=== PATIENT | male | born 1985 | race Caucasian/White ===

== ENCOUNTER → 2019-06-28 08:23 | Outpatient (CLI) | payer OTHER, SELFPAY ==
--- NOTE | 2019-06-28 08:40 | RAD_ITS ---
STUDY: X-RAY CHEST REASON FOR EXAM: Male, 33 years old. One-month history of cough. TECHNIQUE: PA and lateral views of the chest. COMPARISON: Comparison is made with prior study dated July 16, 2015. FINDINGS: Mild increased markings at the left lung base suggestive of left basilar atelectasis and/or early follow-up is recommended. There is no demonstrated pleural abnormality. Normal size heart. Normal mediastinum and sharlene. Normal visualized pulmonary arteries. Normal visualized aortic arch and descending thoracic aorta. Normal visualized thoracic spine. Normal visualized ribs, clavicles, and shoulders. There is no demonstrated abnormality of the visualized soft tissue structures of the upper abdomen. RAD/Chest PA and Lateral IMPRESSION: Mild degree of increased markings at the left lung base as described. Radiographic follow-up is recommended. Electronically Signed: Rafa Farley, at 9:00 EST , Service support ,
== END ==
PROVIDERS: Family Provider Family Medicine; PCP Family Medicine; Referring Provider Nurse Practitioner Family; Visit Provider Nurse Practitioner Family
DX: R05 Cough (principal)
CPT/HCPCS: 71046

== ENCOUNTER → 2020-03-04 | Outpatient (CLI) | payer OTHER, SELFPAY ==
[2015-07-15 11:39] VITALS: BMI 40.1
--- NOTE | 2020-03-04 14:42 | RAD_ITS ---
STUDY: X-RAY - ABDOMEN/PELVIS REASON FOR EXAM: Male, 34 years old. Patient complains of persistent RLQ pain TECHNIQUE: AP supine and upright views of the abdomen and pelvis. COMPARISON: None. FINDINGS: Normal visualized lung bases. There is a moderate amount of colonic fecal material. There is no demonstrated free abdominal air. The visualized liver, spleen and kidneys are grossly normal in size and morphology. Normal soft tissue structures. Normal visualized osseous structures. RAD/Abd Inc Decub and/or Erect IMPRESSION: A moderate amount of fecal material is seen in the colon. Electronically Signed: Rafa Farley, at 15:06 EDT , Service support ,
== END | disposition home or self-care (01) ==
LOC: MTRAD 14:39
PROVIDERS: PCP Family Medicine; Referring Provider Nurse Practitioner Adult Health; Visit Provider Nurse Practitioner Adult Health
DX: R10.9 Unspecified abdominal pain (principal)
CPT/HCPCS: 74019

== ENCOUNTER → 2020-09-05 | Outpatient (CLI) | payer OTHER, SELFPAY ==
[2015-07-15 11:39] VITALS: BMI 40.1
== END | disposition home or self-care (01) ==
LOC: LABSPEC 15:28
PROVIDERS: PCP Family Medicine; Referring Provider Family Medicine; Visit Provider Family Medicine
DX: R50.9 Fever, unspecified (principal)
CPT/HCPCS: 87635; U0005; U0003

== ENCOUNTER 2021-02-19 11:54 | Observation (INO) | payer OTHER, SELFPAY ==
[2021-02-19] VITALS (14 sets, daily range): BP systolic 140–155; BP diastolic 95–104; PULSE 101–121; RESP 16–25; TEMP 36.4–37; O2SAT 88–96; BMI 39.4; BMI 39.6
--- NOTE | 2021-02-19 12:12 | EKG12_ITS ---
Test Reason : SOB Blood Pressure : / mmHG Vent. Rate : 111 BPM Atrial Rate : 111 BPM P-R Int : 162 ms QRS Dur : 092 ms QT Int : 350 ms P-R-T Axes : 034 063 033 degrees QTc Int : 476 ms Sinus tachycardia Otherwise normal ECG Confirmed by NAREN SON, MIKAELA ([id number]), movie editor CATHERINE MORRISSEY ([id number]) on 02/26/2021 1:04:42 PM Referred By: AYLIN Confirmed By:MIKAELA SNEED MD
--- NOTE | 2021-02-19 12:16 | EDS_ITS ---
HPI History of Present Illness Chief Complaint: Shortness of Breath Informant: patient Onset/Context/Timing Onset: Days (3 to 4 days) Context: Gradual Onset Current Severity: Moderate Maximum Severity: Moderate Narrative Narrative: Patient presents with shortness of breath, cough, congestion, and chest tightness for the past 3 to 4 days. Patient has had subjective fever at home. He is coughing up rare sputum. He was seen at [facility] yesterday where he was given albuterol nebulizer solution he does not have a machine. He was given prednisone. He was followed up in his PCPs office this morning and they sent him in to rule out blood clot. [facility] Medical History GERD (gastroesophageal reflux disease) Allergy/AdvReac Type Severity Reaction Status Date / Time No Known Allergies Allergy Verified 02/19/21 11:54 Social History Smoking Status: Current some day smoker tobacco type: cigarettes and cigars ROS ROS ED Constitutional Constitutional ED: Reports fever(s) and subjective; Denies chills Eyes Eyes: Denies change in vision ENT ENT ED: Denies sore throat Cardiovascular Cardiovascular: Reports chest pain Respiratory/Chest Respiratory/Chest: Reports cough and dyspnea Gastrointestinal Gastrointestinal: Denies abdominal pain, diarrhea, nausea or vomiting Genitourinary Genitourinary ED: Denies dysuria Musculoskeletal Musculoskeletal: Denies back pain Integumentary Denies rash Neurologic Neurologic: Denies headache(s) or weakness Psychiatric Psychiatric: Denies anxiety or depression Endocrine Endocrinology: Denies polydipsia or polyuria Allergic/Immunologic Allergic/Immunologic ED: Denies urticaria EXAM Physical Exam Const Vital Signs: 02/19/21 11:55 02/19/21 12:25 02/19/21 12:52 Temperature 97.6 F L Temperature Source Temporal Pulse Rate 121 H 111 H Respiratory Rate 20 H 24 H Respiratory Effort Respiratory Depth Respiratory Pattern Blood Pressure 140/99 H Blood Pressure Mean 112 Pulse Ox 96 91 92 Oxygen Delivery Method Room Air Room Air Nasal Cannula Oxygen Flow Rate (L/min) 2 02/19/21 12:53 02/19/21 13:35 Temperature Temperature Source Pulse Rate 108 H Respiratory Rate 16 Respiratory Effort Normal Non-Labored Respiratory Depth Normal Respiratory Pattern Normal Blood Pressure 145/97 H Blood Pressure Mean 113 Pulse Ox 92 Oxygen Delivery Method Room Air Nasal Cannula Oxygen Flow Rate (L/min) 2 Positive well nourished and well developed General Appearance ED: well developed HEENT Reports normocephalic and head/scalp atraumatic Eyes PERRL and EOMs intact bilaterally Neck supple Chest Wall inspection of chest normal and palpation of chest normal Resp normal respiratory effort and clear to auscultation bilaterally Cardio regular rhythm Rate: tachycardic GI normal to inspection, nondistended, normoactive bowel sounds Palpation: soft Extremity Extremity Narrative: Ecchymosis to the medial right lower leg. Minimal edema. Neuro oriented x3 and no sensory deficits noted Sensorium / Orientation: alert Motor Exam: strength 5/5 throughout Psych mental status grossly normal MDM MDM MDM Narrative Medical decision making narrative: EKG and labs are obtained. Patient is sent for a CTA of his chest. He is given a DuoNeb treatment. Lab Data Attestation: I reviewed the patient's lab results. Labs: Laboratory Results - last 24 hr 02/19/21 02/19/21 12:08 12:08 WBC 6.3 RBC 4.77 Hgb 16.6 H Hct 46.7 MCV 97.9 H MCH 34.8 H MCHC 35.5 RDW Std Deviation 45.5 H RDW Coeff of Linsey 12.8 Plt Count 260 MPV 9.6 Immature Gran % (Auto) 2.200 H Neut % (Auto) 75.6 H Lymph % (Auto) 12.6 L Park % (Auto) 6.8 Eos % (Auto) 1.9 Baso % (Auto) 0.9 Absolute Neuts (auto) 4.8 Absolute Lymphs (auto) 0.80 L Nucleated RBC % 0 Sodium 139 Potassium 4.1 Chloride 107 Carbon Dioxide 25.0 Anion Gap 7 BUN 12 Creatinine 1.20 Estim Creat Clear Calc 101.71 Est GFR (MDRD) Af Amer 88 Est GFR (MDRD) Non-Af 73 BUN/Creatinine Ratio 10.0 Glucose 117 H Calcium 9.1 Troponin I High Sens 59.4 Radiography Diagnostic Testing: Radiology Impression Chest CTA 02/19/21 13:10 IMPRESSION: Normal CTA chest examination, without a demonstrated pulmonary embolism or arterial dissection. Electronically Signed: Rafa Farley MD at 13:49 EDT , Service support , EKG Initial EKG: Attestation: I personally reviewed and interpreted this EKG as follows: Interpretation: Sinus Tachycardia (Sinus tach at 111. No acute ischemia.) Treatment and Re-Evaluation Comments:: On repeat evaluation patient is on 2 L nasal cannula. His O2 sat dropped to 88%. He states his lungs further started to tighten up again and he will be given another albuterol treatment. Blood work is significant only for a troponin of 59.4. CTA of the chest reveals no evidence of PE or dissection. No infiltrate noted. Patient remains borderline tachycardic with significant symptoms. I do question whether he may have a cardiomyopathy or other cause of his symptoms. I will speak with hospitalist regarding observation for cycling of enzymes and possible echocardiogram. Discharge Plan Triage Chief Complaint: Shortness of Breath ED Provider: Rachel Stacy Dx/Rx/DC Orders Clinical Impression: Chest pain Primary Care Provider: Radha Lee Referrals: Radha Lee MD [Primary Care Provider] - Disposition Disposition: Acute Care Hospital [facility]
[2021-02-19] MEDS: Ipratropium/Albuterol Sulfate 3 ML AMPUL.NEB INHALATION (12:22)
[2021-02-19 12:29] LABS: Absolute Neutrophil Count 4.8 X10^3/uL (2.0-7.7); Basophil# 0.06 X10^3/uL; Basophil% 0.9 % (0-1); Eosinophil# 0.12 X10^3/uL; Eosinophils% 1.9 % (0-5); Hematocrit 46.7 % (40-54); Hemoglobin 16.6 g/dL (13.0-16.5); Lymphocyte % 12.6 % (19-41); Mean Corp Hgb Conc 35.5 g/dL (32-36); Mean Corpuscular Hgb 34.8 pg (27.0-32.0); Mean Corpuscular Volume 97.9 fL (80-94); Mean Platelet Vol. 9.6 fl (6.2-12.0); Monocyte# 0.43 X10^3/uL; Monocyte% 6.8 % (0-10); NRBC Flagged by Analyzer 0 % (0-5); Neutrophil # 4.79 X10^3/uL (2.7-7.7); Neutrophil % 75.6 % (47-70); Platelet Count 260 K/mm3 (150-450); RBC Distribution Width CV 12.8 % (11.6-14.6); RBC Distribution Width SD 45.5 fl (35.1-43.9); Red Blood Count 4.77 M/mm3 (4.6-6.2); White Blood Count 6.3 K/mm3 (4.4-11.0)
[2021-02-19 12:46] LABS: Anion Gap 7 (5-15); BUN 12 mg/dL (7-18); Calcium,Total 9.1 mg/dL (8.5-10.1); Chloride 107 mmol/L (98-107); EST Glomerular Filtration Rate 73 mL/min (>60); Est Glom Filt Rate - Afr Amer 88 mL/min (>60); Estimated Creatinine Clearance 101.71 ml/min; Glucose 117 mg/dL (74-106); Potassium 4.1 mmol/L (3.5-5.1); Sodium Level 139 mmol/L (136-145); Troponin-I HS 59.4 pg/mL (3.0-78.5)
--- NOTE | 2021-02-19 13:10 | CT_ITS ---
STUDY: CTA CHEST REASON FOR EXAM: Male, 35 years old. Dyspnea, CP RADIATION DOSAGE (If Supplied By Facility): CTDIvol = ( 13.85 ) mGy, DLP = ( 536.19 ) mGycm TECHNIQUE: The examination was performed with the intravenous administration of IV 100mL Isovue-370. Post-processing of the angiographic images was performed, with multiplanar reformation and 3D reconstruction. Individualized dose optimization techniques were used for this CT. COMPARISON: None. FINDINGS: Normal enhancement of the main pulmonary artery and right and left pulmonary arteries. Normal enhancement of the bilateral peripheral pulmonary arteries. There is no demonstrated pulmonary embolism. Normal thoracic aorta and visualized great vessels. There is no demonstrated aortic dissection. Normal heart and pericardium. Normal mediastinum. Normal hilar regions. Normal visualized trachea and bronchi. The lungs are well expanded. Normal pulmonary parenchyma. Normal pleura. Normal chest wall structures. Normal osseous structures. Diffuse fatty infiltration of the liver. CT/CTA Chest W/WO Contrast IMPRESSION: Normal CTA chest examination, without a demonstrated pulmonary embolism or arterial dissection. Electronically Signed: Rafa Farley MD at 13:49 EDT , Service support ,
[2021-02-19] MEDS: Morphine 4 MG/ML Syringe IV (14:18)
[2021-02-19] MEDS: Albuterol 2.5 MG/3 ML VIAL.NEB. INHALATION (14:45)
[2021-02-19] MEDS: 0.9% Normal Saline 1,000 ML 999 ML IV (14:45)
--- NOTE | 2021-02-19 16:03 | NURSING ---
PCU CP, SOB JOSE
[2021-02-19 16:31] LABS: Troponin-I HS 47.1 pg/mL (3.0-78.5)
--- NOTE | 2021-02-19 17:16 | HP.PCM.HOS_ITS ---
Documented by User: Demetrio MARCOS 02/19/21 17:44 HPI - General General Date of Admission: 02/19/21 HPI Narrative SABRINA BRUMFIELD is a 35 y/o M who presents to the ED at [facility] on 02/19/2021 with a chief complaint of chest pain and shortness of breath x4 days. Patient reports that for the past 4 days he has been experiencing a progressively worsening chest pain that is midepigastric, radiates to the upper extremities and is nonexertional in nature. Patient has been previously evaluated at the [place] emergency department where he was given prednisone and an albuterol nebulizer treatment, to which he does not have the machine to use. Patient reports no relief from these therapies. Patient followed up at his primary care office with the same symptoms and was told to report to the emergency department at [facility] [place]. Patient endorses multiple life stressors, to which he did not want to go into great detail. Dr. Miranda evaluated the patient before this provider and had a long conversation about patient's ongoing life stressors, where the patient was observed crying. patient denies cough, sputum production, hemoptysis, lower extremity pain/swelling, fever, chills, N/V/D. Patient denies any diagnosed past medical history, although reports that he knows he has high blood pressure. Patient's vital signs were tachycardic in the ED between 100-110. Patient has also been hypertensive at a sustained rate greater than 140/90. Other vital signs stable, patient afebrile and satting at 95% on 2 L via nasal cannula. CBC is unremarkable. BMP is unremarkable. High-sensitivity troponins are not elevated. CT-A was normal and did not demonstrate any pulmonary embolism or arterial dissection. Rapid Covid is negative. EKG demonstrated sinus tachycardia at a ventricular rate of 111, no evidence of acute ischemia. Patient was given morphine, albuterol and fluids while in the emergency department. PFSH Medical History Alcohol abuse Anxiety BiPAP (biphasic positive airway pressure) dependence Depression GERD (gastroesophageal reflux disease) Hypertension Kidney stones Migraines Sleep apnea Smoker Home Medications NK 02/19/21 [History Last Taken Unknown] Allergy/AdvReac Type Severity Reaction Status Date / Time No Known Allergies Allergy Verified 02/19/21 11:54 Family History (Updated 02/19/21 @ 17:27 by Demetrio MARCOS) Father Cancer from colorectal cancer x6 years ago. Mother Hypertension Surgical History (Updated 02/19/21 @ 17:28 by Demetrio MARCOS) S/P hernia surgery S/P tonsillectomy Social History (Updated 02/19/21 @ 17:30 by Demetrio MARCOS) household members: significant other, family and children housing: house number of children: 3 Smoking Status: Current some day smoker tobacco type: cigarettes and cigars per week: 1 alcohol intake: current alcohol intake frequency: a few times a week Alcohol type: beer details: 5-9 craft beers socially. ROS Constitutional Constitutional: Reports fatigue and weakness; Denies anorexia, change in weight, chills, fever(s), malaise, night sweats or other Eyes Eyes: Denies blurry vision, change in eye color, change in vision, discharge from eye(s), double vision, erythema, eye pain, loss of vision or other ENT HEENT: Reports headache(s); Denies abnormal hearing, dysphagia, ear pain, epistaxis, hearing loss, nasal congestion, nasal discharge, post nasal drip, sinus pressure, sore throat or other Cardiovascular Cardiovascular: Reports chest pain, dyspnea on exertion and rapid heart rate; Denies claudication, edema, lightheadedness, orthopnea, palpitations, paroxysmal nocturnal dyspnea, syncope or other Respiratory/Chest Respiratory/Chest: Reports shortness of breath at rest; Denies cough, dyspnea, excessive phlegm production, hemoptysis, productive cough, shortness of breath with exertion, wheezing or other Gastrointestinal Gastrointestinal: Denies abdominal pain, coffee ground emesis, constipation, diarrhea, dyspepsia, hematemesis, hematochezia, loose stools, melena, nausea, vomiting or other Genitourinary Genitourinary: Denies burning urination, difficulty urinating, dysuria, hematuria, nocturia, urinary frequency, urinary hesitancy, urinary incontinence, urinary urgency or other Musculoskeletal Musculoskeletal: Denies arthralgias, back pain, joint pain, joint stiffness, joint swelling, myalgias, neck pain or other Neurologic Neurologic: Reports abnormal speech and headache(s); Denies abnormal gait, confusion, disequilibrium, dizziness, focal weakness, numbness, paresthesias, seizure-like activity, seizures, syncope, tingling, tremor(s) or other Psychiatric Psychiatric: Reports anxiety and other Details: Patient reports several life stressors, which he did not elaborate in great detail. Endocrine Endocrinology: Denies change in body appearance, cold intolerance, excessive sweating, heat intolerance, polydipsia, polyuria or other Hematologic/Lymphatic Hematologic/Lymphatic: Denies anemia, easy bleeding, easy bruising, lymph adenopathy or other Allergic/Immunologic Allergic/Immunologic: Denies rhinitis, hives, eczemia, asthma or other Vital Signs Vital Signs Vital Signs: 02/19/21 11:55 02/19/21 12:25 02/19/21 12:30 Temperature 97.6 F L Temperature Source Temporal Pulse Rate 121 H 111 H Respiratory Rate 20 H 24 H Respiratory Effort Respiratory Depth Respiratory Pattern Blood Pressure 140/99 H Blood Pressure Mean 112 Blood Pressure Source Blood Pressure Position Blood Pressure Location Pulse Ox 96 91 88 Oxygen Delivery Method Room Air Room Air Room Air Oxygen Flow Rate (L/min) 02/19/21 12:52 02/19/21 12:53 02/19/21 13:35 Temperature Temperature Source Pulse Rate 108 H Respiratory Rate 16 Respiratory Effort Normal Non-Labored Respiratory Depth Normal Respiratory Pattern Normal Blood Pressure 145/97 H Blood Pressure Mean 113 Blood Pressure Source Blood Pressure Position Blood Pressure Location Pulse Ox 92 92 Oxygen Delivery Method Nasal Cannula Room Air Nasal Cannula Oxygen Flow Rate (L/min) 2 2 02/19/21 14:45 02/19/21 16:00 02/19/21 16:17 Temperature 98.4 F Temperature Source Oral Pulse Rate 107 H 106 H Respiratory Rate 25 H 18 Respiratory Effort Respiratory Depth Respiratory Pattern Blood Pressure 155/95 H Blood Pressure Mean 115 Blood Pressure Source Blood Pressure Position Blood Pressure Location Pulse Ox 96 95 95 Oxygen Delivery Method Nasal Cannula Nasal Cannula Nasal Cannula Oxygen Flow Rate (L/min) 2 2 02/19/21 17:06 Temperature 98.6 F Temperature Source Temporal Pulse Rate 102 H Respiratory Rate 16 Respiratory Effort Respiratory Depth Respiratory Pattern Blood Pressure 149/103 H Blood Pressure Mean 118 Blood Pressure Source Monitor Blood Pressure Position Semi-Fowlers Blood Pressure Location Right Arm Pulse Ox 95 Oxygen Delivery Method Nasal Cannula Oxygen Flow Rate (L/min) 2 Weight Weight: 317 lb 7.45 oz Body Mass Index (BMI) 39.6 Physical Exam Const alert, oriented x3 and no apparent distress General Appearance: cooperative HEENT normocephalic, head/scalp atraumatic and hearing grossly normal bilaterally Eyes EOMs intact bilaterally and conjunctivae normal Neck no lymphadenopathy, supple and no JVD Resp normal respiratory effort, normal air movement, no retractions and no use of accessory muscles Cardio regular rhythm, no murmurs and no JVD Rate: tachycardic GI normal to inspection, nondistended, normoactive bowel sounds, soft to palpation, non-tender and non-distended Extremity normal to inspection, full ROM and no clubbing, cyanosis or edema Peripheral Pulses: Yes pulses 2+ throughout Skin no rashes or lesions noted, no wounds and no jaundice Neuro CN's II-XII intact bilaterally Psych Mood & Affect: anxious Results Lab / Micro Data Result Diagrams: 02/19/21 12:08 02/19/21 12:08 Labs: Laboratory Results - last 24 hr 02/19/21 02/19/21 02/19/21 12:08 12:08 15:55 WBC 6.3 RBC 4.77 Hgb 16.6 H Hct 46.7 MCV 97.9 H MCH 34.8 H MCHC 35.5 RDW Std Deviation 45.5 H RDW Coeff of Linsey 12.8 Plt Count 260 MPV 9.6 Immature Gran % (Auto) 2.200 H Neut % (Auto) 75.6 H Lymph % (Auto) 12.6 L Weber % (Auto) 6.8 Eos % (Auto) 1.9 Baso % (Auto) 0.9 Absolute Neuts (auto) 4.8 Absolute Lymphs (auto) 0.80 L Nucleated RBC % 0 Sodium 139 Potassium 4.1 Chloride 107 Carbon Dioxide 25.0 Anion Gap 7 BUN 12 Creatinine 1.20 Estim Creat Clear Calc 101.71 Est GFR (MDRD) Af Amer 88 Est GFR (MDRD) Non-Af 73 BUN/Creatinine Ratio 10.0 Glucose 117 H Calcium 9.1 Troponin I High Sens 59.4 47.1 Micro: Microbiology 02/19/21 12:05 SARS-CoV-2 Antigen (Rapid) - Final Mucosa - Nose Radiology Impression Chest CTA 02/19/21 13:10 IMPRESSION: Normal CTA chest examination, without a demonstrated pulmonary embolism or arterial dissection. Electronically Signed: Rafa Farley MD at 13:49 EDT , Service support , Assessment & Plan Assessment/Plan (1) Smoker: (2) Hypertension: (3) Depression: (4) Anxiety: (5) Hiatal hernia: (6) Chest pain: PLAN: Patient is a 35-year-old male presents to the ED at [facility] [place] on 02/19/2021 with a chief complaint of chest pain and shortn ess of breath x4 days. Patient will be admitted for chest pain/ACS rule out. 1) chest pain and dyspnea History of chest pain shortness of breath as above. History and presentation appear psychological in nature, possibly related to anxiety and unidentified life stressors. EKG in the ED demonstrated sinus tachycardia at a ventricular rate of 110. Patient also has a mild hypertension with a sustained rate of greater than 140/90. Other vital signs stable patient is afebrile. High-sensitivity troponins not elevated. CT?A obtained to assess for PE, no evidence of pulmonary embolism or arterial dissection, diffuse fatty liver infiltration, otherwise other systems normal. Heart score is 1. Plan; admit to PCU for cardiac telemetry monitoring, continue to cycle troponins, lipid profile ordered, O2 per protocol, TSH in a.m. 2) HTN Sustained hypertension at a sustained rate greater than 140/90. Patient denies any diagnosed hypertension, but reports he knows he has high blood pressure. Not on any hypertensive medications at home. Plan; as above. 3) depression/anxiety Patient identified several life stressors, to which he did not go into detail. Prior to my examination, patient was talking to Dr. Miranda and was observed crying. Plan; as above, patient may benefit from psychological counseling as an outpatient. 4) tobacco use Patient endorses smoking 4 to 5 cigars/month. Cessation advised. DVT prophylaxis -low risk, not indicated CODE STATUS: Full code Patient seen by Demetrio Fortune PA-C, under the supervision of Dr. Kwon. Documented by User: Dr. Paco Miranda MD 02/19/21 18:06 HPI - General General Date of Admission: 02/19/21 [facility] Medical History Alcohol abuse Anxiety BiPAP (biphasic positive airway pressure) dependence Depression GERD (gastroesophageal reflux disease) Hypertension Kidney stones Migraines Sleep apnea Smoker Home Medications NK 02/19/21 [History Last Taken Unknown] Allergy/AdvReac Type Severity Reaction Status Date / Time No Known Allergies Allergy Verified 02/19/21 11:54 Family History (Updated 02/19/21 @ 17:27 by Demetrio MARCOS) Father Cancer from colorectal cancer x6 years ago. Mother Hypertension Surgical History (Updated 02/19/21 @ 17:28 by Demetrio MARCOS) S/P hernia surgery S/P tonsillectomy Social History (Updated 02/19/21 @ 17:30 by Demetrio MARCOS) household members: significant other, family and children housing: house number of children: 3 Smoking Status: Current some day smoker tobacco type: cigarettes and cigars per week: 1 alcohol intake: current alcohol intake frequency: a few times a week Alcohol type: beer details: 5-9 craft beers socially. Results Lab / Micro Data Result Diagrams: 02/19/21 12:08 02/19/21 12:08 Charges/Coding Addendum Addendum: Dr. Miranda: I personally reviewed the chart and examined the patient, and agree with the above findings. 35-year-old male presents this hospital with continued chest pain and pressure. He states that he went to an outside hospital yesterday and and was told that everything was normal and they gave him albuterol for n ebulizer machine that he does not have and told him to follow-up with his PCP. Today his PCP sent him into the ER to be evaluated for potential blood clots. CTA of the chest was completely negative for pulmonary process and a PE, and a BMP at the outside hospital was normal. He did get hypoxic after breathing treatment which necessitated 2 L of oxygen because he was down to 88%, will attempt to wean. He said this started after he was clearing out trees and some debris but on further evaluation he has been having issues with anxiety for quite a while now related to life events between himself and his and work. After our discussion he says that he feels a lot better initial troponin was 59.4 repeat now is 47.1. We will start him on Zoloft and if he is still having chest pain in the morning may be beneficial to proceed with a stress test for completeness sake, lipid panel is pending. Visit Charges OBSV E&M: [id number] Initial observation care L2
[2021-02-19] MEDS: 0.9% Normal Saline 1,000 ML 100 ML IV (17:41)
[2021-02-19] MEDS: Morphine 2 MG/ML Syringe IV (18:52)
--- NOTE | 2021-02-19 20:18 | EKG12_ITS ---
Test Reason : CP ADMIT Blood Pressure : / mmHG Vent. Rate : 105 BPM Atrial Rate : 105 BPM P-R Int : 160 ms QRS Dur : 098 ms QT Int : 372 ms P-R-T Axes : 057 053 020 degrees QTc Int : 491 ms Sinus tachycardia Otherwise normal ECG When compared with ECG of 19-FEB-2021 12:20, MANUAL COMPARISON REQUIRED, DATA IS UNCONFIRMED Confirmed by THELMA SON, DANE ([id number]), newspaper managing editor LEONARD VITALE ([id number]) on 02/20/2021 12:57:12 PM Referred By: DR GARCIA Confirmed By:SHAINA RENEE MD
[2021-02-19] MEDS: LORazepam 0.5 MG Tablet PO (20:31)
[2021-02-19] MEDS: Temazepam 15 MG Capsule 30 MG PO (20:31)
[2021-02-19 21:27] LABS: Troponin-I HS 51.2 pg/mL (3.0-78.5)
[2021-02-20] VITALS (8 sets, daily range): BP systolic 147–171; BP diastolic 81–105; PULSE 90–123; RESP 18; TEMP 36.7; O2SAT 95–98
[2021-02-20] MEDS: 0.9% Normal Saline 1,000 ML 100 ML IV (03:33)
[2021-02-20] MEDS: LORazepam 0.5 MG Tablet PO (04:29)
--- NOTE | 2021-02-20 05:55 | EKG12_ITS ---
Test Reason : AM EKG Blood Pressure : / mmHG Vent. Rate : 098 BPM Atrial Rate : 098 BPM P-R Int : 166 ms QRS Dur : 098 ms QT Int : 382 ms P-R-T Axes : 058 050 032 degrees QTc Int : 487 ms Normal sinus rhythm Prolonged QT Abnormal ECG When compared with ECG of 19-FEB-2021 19:44, MANUAL COMPARISON REQUIRED, DATA IS UNCONFIRMED Confirmed by THELMA SON, DANE ([id number]), digital editor LEONARD VITALE ([id number]) on 02/20/2021 12:57:44 PM Referred By: DR GARCIA Confirmed By:SHAINA RENEE MD
[2021-02-20 06:33] LABS: Absolute Lymphocyte Count 1.05 X10^3/uL (0.83-4.51); Absolute Neutrophil Count 4.5 X10^3/uL (2.0-7.7); Basophil# 0.05 X10^3/uL; Basophil% 0.8 % (0-1); Eosinophil# 0.26 X10^3/uL; Hematocrit 44.3 % (40-54); Hemoglobin 15.2 g/dL (13.0-16.5); Lymphocyte # 1.05 X10^3/ul (0.83-4.51); Lymphocyte % 16.1 % (19-41); Mean Corp Hgb Conc 34.3 g/dL (32-36); Mean Corpuscular Hgb 34.8 pg (27.0-32.0); Mean Corpuscular Volume 101.4 fL (80-94); Mean Platelet Vol. 9.6 fl (6.2-12.0); Monocyte# 0.55 X10^3/uL; Monocyte% 8.4 % (0-10); NRBC Flagged by Analyzer 0 % (0-5); Neutrophil # 4.49 X10^3/uL (2.7-7.7); Neutrophil % 68.9 % (47-70); Platelet Count 229 K/mm3 (150-450); RBC Distribution Width CV 13.2 % (11.6-14.6); RBC Distribution Width SD 48.3 fl (35.1-43.9); Red Blood Count 4.37 M/mm3 (4.6-6.2); White Blood Count 6.5 K/mm3 (4.4-11.0)
[2021-02-20 07:11] LABS: Anion Gap 5 (5-15); BUN 11 mg/dL (7-18); BUN/Creat Ratio 11.7 RATIO (10-20); Calcium,Total 8.4 mg/dL (8.5-10.1); Chloride 109 mmol/L (98-107); Cholesterol 233 mg/dL (200); Creatinine, Serum 0.94 mg/dL (0.70-1.30); EST Glomerular Filtration Rate 96 mL/min (>60); Est Glom Filt Rate - Afr Amer 116 mL/min (>60); Estimated Creatinine Clearance 129.85 ml/min; Glucose 105 mg/dL (74-106); High Density Lipoprotein 43 mg/dL; Potassium 3.9 mmol/L (3.5-5.1); Sodium Level 138 mmol/L (136-145); Thyroid Stim Hormone (TSH) 4.59 uIU/mL (0.358-3.74); Triglycerides 183 mg/dL; Very Low Density Lipoprotein 37 mg/dL (5-40)
--- NOTE | 2021-02-20 10:18 | NURSING ---
Osei HERRING on PCU, notified of patients elevated blood pressure while in Cardiovascular department for stress test.
[2021-02-20] MEDS: Acetaminophen 325 MG Tablet 650 MG PO (10:52)
[2021-02-20] MEDS: Sertraline 50 MG Tablet PO (10:53)
--- NOTE | 2021-02-20 11:47 | PCM.DC ---
Discharge Instructions Diet Discharge Diet: Low fat / Low cholesterol Activity Discharge Activity: Return to Normal Activity Dressing / Incision Call your doctor if you observe: Shortness of breath, Dizziness and Chest pain Follow Up Care Test Results: Test results from this visit will be discussed in further detail at your follow-up appointment, if applicable. Discharge Plan Admission Admit Date/Time: 02/19/21 15:50 Primary Reason for Your Visit: Chest pain, shortness of breath Attending Provider: Mehdi Cobos Primary Care Provider: Radha Lee Instructions Additional Instructions / Restrictions: Recommend follow up with [facility] for anxiety/depression/stressors. You can call for appointment at [phone]. Discharge Orders/Prescriptions Prescriptions: New sertraline 50 mg Tablet 50 mg PO DAILY Qty: 30 RF: 0 lisinopril 10 mg tablet 10 mg PO DAILY Qty: 30 RF: 0 atorvastatin 10 mg tablet 10 mg PO QHS Qty: 30 RF: 0 Referrals / Follow Up: Radha Lee MD [Primary Care Provider] - In 1 Week Disposition Disposition (needs filled in before D/C Order can be placed): Home, Self Care
[2021-02-20] MEDS: Lisinopril 10 MG Tablet PO (12:02)
--- NOTE | 2021-02-20 12:05 | STRESSREP ---
Stress Test Report Date: 02/20/2021 Procedure: Pharmacologic stress nuclear imaging study Indications: Chest pain Consent: Per the patient Procedure: The patient underwent pharmacologic (Regadenoson) evaluation with a peak heart rate of 137 beats per minute (74%predicted maximal heart rate) and a peak blood pressure of 176/118 mmHg. The baseline ECG demonstrated sinus tachycardia. EKG during lexiscan infusion revealed no significant ischemic changes. EKG post infusion revealed no significant ischemic changes [There were no cardiac dysrhythmias pretest, during pharmacologic infusion, or recovery]. Patient had chest discomfort at baseline that did not change with Lexiscan infusion. The examination was discontinued secondary to completion of protocol. Impression: 1. Lexiscan stress test test is negative for Lexiscan infusion induced EKG changes of ischemia. 2. Lexiscan stress test test is negative for Lexiscan infusion induced chest pain. 3. Results of the nuclear portion of the test is as below Myocardial perfusion imaging study: Technique: The patient was injected with [] millicuries of technetium 99m Cardiolite and subsequently rest SPECT Cardiolite nuclear imaging was obtained in the horizontal long, vertical long, and short axis views. The patient underwent pharmacologic [Regadenoson 0.4mg] evaluation. Please see above for details. The patient was injected with [] millicuries of technetium 99m Cardiolite and subsequently stress SPECT Cardiolite nuclear imaging was obtained in the horizontal long, vertical long, and short axis views. A gated Cardiolite study at peak stress was obtained. Interpretation: Rest and stress SPECT Cardiolite nuclear imaging status post realignment, normalization, and attenuation correction demonstrate overall normal myocardial radioisotope uptake. There is no evidence of significant ischemia or infarction. Gated images reveal no significant regional wall motion abnormalities. The reported LVEF is 55%. Impression: 1. There is no evidence of significant ischemia or infarction. 2. Estimated ejection fraction is 55%. This note was generated with [employer] software. It may contain incorrect words, spelling, and punctuation that were not noted in checking the note before signing.
[2021-02-20 12:41] LABS: Free T3 2.7 pg/mL (2.18-3.98); T4 Free Direct 0.87 ng/dL (0.76-1.46)
--- NOTE | 2021-02-20 12:57 | DS.PCM_ITS ---
Documented by User: Kaylee Aranda NP, DATA TECHNICAL LEAD-C 02/20/21 13:02 Providers Date of Admission: 02/19/21 Date of Discharge: 02/20/21 Primary Care Physician: Dr. Radha Lee MD Reason For Visit: CHEST PRESSURE Diagnosis Discharge Diagnosis (1) Smoker: Status: Acute Code(s): F17.200 - Nicotine dependence, unspecified, uncomplicated (2) Hypertension: Status: Chronic Code(s): I10 - Essential (primary) hypertension (3) Depression: Status: Acute Code(s): F32.9 - Major depressive disorder, single episode, unspecified (4) Anxiety: Status: Acute Code(s): F41.9 - Anxiety disorder, unspecified (5) Hiatal hernia: Status: Acute Code(s): K44.9 - Diaphragmatic hernia without obstruction or gangrene (6) Chest pain: Status: Acute Code(s): R07.9 - Chest pain, unspecified Medications at Discharge Home Medications atorvastatin 10 mg PO QHS #30 tab 02/20/21 lisinopril 10 mg PO DAILY #30 tab 02/20/21 sertraline 50 mg PO DAILY #30 tab 02/20/21 Hospital Course Operations None Procedures Nuclear stress test Summary of Care Provided Minutes Spent on Discharge: 35 Hospital Course: Patient is a 35-year-old male admitted 02/19/2021 due to chest pain, shortness of breath. 1. Chest pain, shortness of breath-ACS ruled out. Troponin negative. Patient underwent nuclear stress test which was negative for ischemia, estimated ejection fraction 55%. CT of chest without PE or arterial dissection. Patient reports a significant amount of stress at home and with work and feels his sympt oms may be related to that. Initiated on Zoloft on admission, Rx at discharge for continued therapy. Patient amendable to outpatient counseling as well and was given information for follow-up. Follow-up with PCP in 1 week. 2. Hypertension-states he was previously diagnosed however has not been on medication regimen. Initiated on lisinopril 10 mg daily and will need further monitoring and follow-up with PCP. 3. Hyperlipidemia-initiated on low-dose statin. 4. Tobacco dependence-encouraged cessation. 5. ALTAGRACIA-sleep study from 2014 demonstrated ALTAGRACIA. Unclear if patient is compliant with CPAP. Patient seen and examined prior to discharge. Physical assessment as noted below. Patient is stable for discharge with follow up recommendations as noted above. This patient was seen by KAYLIE Lawler under the supervision of Dr. Cobos. Physical Exam Const alert, oriented x3 and no apparent distress Orientation / Consciousness: awake, oriented to person, oriented to place and oriented to time HEENT normocephalic and moist oral mucous membranes Eyes PERRL, EOMs intact bilaterally and conjunctivae normal Neck no lymphadenopathy Resp normal respiratory effort and clear to auscultation bilaterally Cardio regular rate, regular rhythm and no murmurs Peripheral Pulses: pulses 2+ throughout GI normal to inspection, nondistended, normoactive bowel sounds, non-tender and non-distended Extremity normal to inspection Skin no rashes or lesions noted Lesions: no lesions Rashes: no rashes Trauma: no lacerations or abrasions Neuro CN's II-XII intact bilaterally, no focal motor deficits, no sensory deficits noted and deep tendon reflexes 2+ bilaterally Psych mental status grossly normal and affect normal Weight / BMI Weight Weight: 317 lb 7.45 oz Body Mass Index (BMI) 39.6 ABG / Lab / Microbiology Data Result Diagrams: 02/20/21 06:18 02/20/21 06:18 Laboratory: Laboratory Results - last 24 hr 02/19/21 02/19/21 02/20/21 15:55 20:10 06:18 WBC 6.5 RBC 4.37 L Hgb 15.2 Hct 44.3 MCV 101.4 H MCH 34.8 H MCHC 34.3 RDW Std Deviation 48.3 H RDW Coeff of Linsey 13.2 Plt Count 229 MPV 9.6 Immature Gran % (Auto) 1.800 H Neut % (Auto) 68.9 Lymph % (Auto) 16.1 L [place] % (Auto) 8.4 Eos % (Auto) 4.0 Baso % (Auto) 0.8 Absolute Neuts (auto) 4.5 Absolute Lymphs (auto) 1.05 Nucleated RBC % 0 Sodium Potassium Chloride Carbon Dioxide Anion Gap BUN Creatinine Estim Creat Clear Calc Est GFR (MDRD) Af Amer Est GFR (MDRD) Non-Af BUN/Creatinine Ratio Glucose Calcium Troponin I High Sens 47.1 51.2 Triglycerides Cholesterol LDL Cholesterol VLDL Cholesterol HDL Cholesterol TSH Free T4 Free T3 pg/dL 02/20/21 02/20/21 06:18 06:18 WBC RBC Hgb Hct MCV MCH MCHC RDW Std Deviation RDW Coeff of Linsey Plt Count MPV Immature Gran % (Auto) Neut % (Auto) Lymph % (Auto) [place] % (Auto) Eos % (Auto) Baso % (Auto) Absolute Neuts (auto) Absolute Lymphs (auto) Nucleated RBC % Sodium 138 Potassium 3.9 Chloride 109 H Carbon Dioxide 24.0 Anion Gap 5 BUN 11 Creatinine 0.94 Estim Creat Clear Calc 129.85 Est GFR (MDRD) Af Amer 116 Est GFR (MDRD) Non-Af 96 BUN/Creatinine Ratio 11.7 Glucose 105 Calcium 8.4 L Troponin I High Sens Triglycerides 183 Cholesterol 233 H LDL Cholesterol 153 H VLDL Cholesterol 37 HDL Cholesterol 43 TSH 4.59 H Free T4 0.87 Free T3 pg/dL 2.7 Microbiology: Microbiology 02/19/21 12:05 SARS-CoV-2 Antigen (Rapid) - Final Mucosa - Nose Microbiology 02/19/21 12:05 Mucosa - Nose SARS-CoV-2 Antigen (Rapid) - Final Radiography Diagnostic Testing: Radiology Impression Chest CTA 02/19/21 13:10 IMPRESSION: Normal CTA chest examination, without a demonstrated pulmonary embolism or arterial dissection. Electronically Signed: Rafa Farley MD at 13:49 EDT , Service support , D/C Instructions Discharge Diet: Low fat / Low cholesterol Call your doctor if you observe: Shortness of breath, Dizziness and Chest pain Meaningful Use Info Meaningful Use Diagnoses (Choose all that apply): None applicable Discharge Plan Admission Admit Date/Time: 02/19/21 15:50 Primary Reason for Your Visit: Chest pain, shortness of breath Attending Provider: Mehdi Cobos Primary Care Provider: Radha Lee Instructions Additional Instructions / Restrictions: Patient Problems: Altered Health Status related to Hospitalization Patient Goals: *Optimal Level of Health *Keep Appointments *Medication Compliance *Remain SafeRecommend follow up with [facility] for anxiety/depression/stressors. You can call for appointment at [phone]. Discharge Orders/Prescriptions Prescriptions: New sertraline 50 mg Tablet 50 mg PO DAILY Qty: 30 RF: 0 lisinopril 10 mg tablet 10 mg PO DAILY Qty: 30 RF: 0 atorvastatin 10 mg tablet 10 mg PO QHS Qty: 30 RF: 0 Referrals / Follow Up: Radha Lee MD [Primary Care Provider] - In 1 Week Disposition Disposition (needs filled in before D/C Order can be placed): Home, Self Care Documented by User: Dr. Mehdi Cobos MD 02/20/21 14:27 Providers Date of Admission: 02/19/21 Reason For Visit: CHEST PRESSURE Medications at Discharge Home Medications atorvastatin 10 mg PO QHS #30 tab 02/20/21 lisinopril 10 mg PO DAILY #30 tab 02/20/21 sertraline 50 mg PO DAILY #30 tab 02/20/21 Hospital Course Summary of Care Provided Hospital Course: This patient was seen in conjunction with Kaylee MAI. I have independently interviewed and examined the patient and reviewed pertinent history, examination findings, laboratory and plan of management. I have reviewed the note and agree with the documented findings with the few additional points. In brief, patient is admitted for atypical chest pain or shortness of breath. Patient was admitted in PCU.. ACS ruled out. Serial high-sensitivity troponins are negative. Patient had a stress myocardial nuclear perfusion test negative for ischemia. CT chest was negative for PE or arterial dissection. Patient on Zoloft for stress and anxiety. Blood pressure elevated 147/105. It is controlled on antihypertensive medications. Lisinopril 10 mg daily advised follow-up PCP with ABPM/home BP monitoring. Other comorbidities include morbid severity, sleep apnea and dyslipidemia: LDL 153, total cholesterol 263. Discharged on a statin Discharge medication reconciliation done. Discharge follow-up instructions completed. Discharge process discussed with the patient and all questions were answered to patient's satisfaction. Total time spent, exact 35 minutes on discharge meds reconciliation, examination , coordination of care with nurses and ancillary staff, review of imaging and blood test and discussion with the patient on follow-up instructions I have discussed my assessment with DATA TECHNICAL LEAD, Kaylee and orders have been reviewed. Physical Exam Narrative Seen and examined after the stress test. Patient was admitted with chest tightness and pain with tingling and numbness in right hand along with acid shortness of breath. Chest pain has resolved. Patient did not had chest tightness or pain or shortness of breath during the stress test. Physical exam General: Alert, Oriented x3, Cooperative HEENT: Atraumatic, PERRLA, EOMI, Normocephalic Oral: No Gingival or Mucosal Lesions/ Ulcerations Neck: Supple, No JVD, Negative Carotid Bruits Lungs: Air entry equal in bilateral lung bases. No crepitation/rhonchi Cardiovascular: Regular rate, Regular Rhythm, Normal S1, Normal S2, No murmurs Abdomen: Bowel Sounds Present, Soft, Non Tender, Non-Distended : No renal angle tenderness. No suprapubic tenderness. Extremities: No edema, Capillary Refill Less than 3 Seconds Skin: No rashes, No breakdown Musculoskeletal: No Tenderness to Palpation of Joints or Extremities Neurological: Cranial nerves II-XII grossly intact, Deep Tendon Reflexes 2+/4 and Symmetrical, Neuro grossly intact Psych/Mental Status: Normal Affect, Appropriate. ABG / Lab / Microbiology Data Result Diagrams: 02/20/21 06:18 02/20/21 06:18 Discharge Plan Admission Admit Date/Time: 02/19/21 15:50 Primary Reason for Your Visit: Chest pain, shortness of breath Attending Provider: Mehdi Cobos Primary Care Provider: Radha Lee Instructions Additional Instructions / Restrictions: Patient Problems: Altered Health Status related to Hospitalization Patient Goals: *Optimal Level of Health *Keep Appointments *Medication Compliance *Remain SafeRecommend follow up with [facility] for anxiety/depression/stressors. You can call for appointment at [phone]. Discharge Orders/Prescriptions Prescriptions: New sertraline 50 mg Tablet 50 mg PO DAILY Qty: 30 RF: 0 lisinopril 10 mg tablet 10 mg PO DAILY Qty: 30 RF: 0 atorvastatin 10 mg tablet 10 mg PO QHS Qty: 30 RF: 0 Referrals / Follow Up: Radha Lee MD [Primary Care Provider] - In 1 Week Disposition Disposition (needs filled in before D/C Order can be placed): Home, Self Care Charges/Coding Visit Charges OBSV E&M: 74224 Observation care discharge
== END 2021-02-20 11:53 | disposition home or self-care (01) ==
LOC: ED 14:16 → PCU 16:05
PROVIDERS: Nurse Practitioner Family; Admitting Provider Family Medicine; Emergency Provider Emergency Medicine; PCP Family Medicine; Visit Provider Internal Medicine
DX: R07.89 Other chest pain (principal); I10 Essential (primary) hypertension; F17.210 Nicotine dependence, cigarettes, uncomplicated; K44.9 Diaphragmatic hernia without obstruction or gangrene; E78.5 Hyperlipidemia, unspecified; G47.33 Obstructive sleep apnea (adult) (pediatric); R06.02 Shortness of breath; K21.9 Gastro-esophageal reflux disease without esophagitis; R00.0 Tachycardia, unspecified; F32.9 Major depressive disorder, single episode, unspecified; F41.9 Anxiety disorder, unspecified
CPT/HCPCS: 36415; 71275; 78452; 80048; 80061; 84439; 84443; 84481; 84484; 85025; 87426; 93005; 93017; 94640; 94660; 96361; 96374; 96376; 99218; 99285; A9500; J7030; Q9967; A4216; G0378; J2785

== ENCOUNTER 2021-03-17 10:44 | Observation (INO) | payer OTHER, SELFPAY ==
[2021-02-19 17:05] VITALS: BMI 39.6
[2021-03-17] VITALS (11 sets, daily range): BP systolic 156–178; BP diastolic 88–111; PULSE 81–98; RESP 6–23; TEMP 36.1–36.7; O2SAT 96–98; BMI 42.3; BMI 92.5
--- NOTE | 2021-03-17 11:17 | EKG12_ITS ---
Test Reason : CHEST PAIN Blood Pressure : / mmHG Vent. Rate : 082 BPM Atrial Rate : 082 BPM P-R Int : 160 ms QRS Dur : 098 ms QT Int : 414 ms P-R-T Axes : 050 047 022 degrees QTc Int : 483 ms Normal sinus rhythm with sinus arrhythmia Prolonged QT Abnormal ECG Confirmed by NAREN SON, MIKAELA ([id number]), image editor LEONARD VITALE ([id number]) on 03/19/2021 1:21:12 PM Referred By: SERGE Confirmed By:MIKAELA SNEED MD
--- NOTE | 2021-03-17 11:17 | CT_ITS ---
STUDY: CT CHEST WITH CONTRAST REASON FOR EXAM: Male, 35 years old. Left arm, neck edema. Chest fullness. RADIATION DOSAGE (If Supplied By Facility): CTDIvol = ( 18.39 ) mGy, DLP = ( 818.95 ) mGycm TECHNIQUE: Transaxial imaging was performed following intravenous administration of IV 100mL Isovue-370. Multiplanar coronal and sagittal images were reformatted. Individualized dose optimization techniques were used for this CT. COMPARISON: Comparison is made with prior examination dated 02/19/2021. FINDINGS: The lungs are normal. There is no demonstrated pleural abnormality. Normal heart and pericardium. Normal mediastinum. Normal hilar regions. Normal enhanced pulmonary arteries. Normal aorta arch and descending thoracic aorta. There are mild degenerative changes of the thoracic spine. Diffuse fatty infiltration of the liver. Hepatomegaly. Small hiatal hernia. CT/Chest WITH Contrast IMPRESSION: Fatty infiltration of the liver. No acute abnormality is seen. Electronically Signed: Rafa Farley MD at 12:41 EDT , Service support ,
--- NOTE | 2021-03-17 11:17 | VDUE_ITS ---
Reason For Study: Swelling Left Proximal Left jugular vein is spontaneous, widely patent, phasic, with no intraluminal echogenicity noted. Left subclavian vein is spontaneous, widely patent, phasic, with no intraluminal echogenicity noted. Left Arm Left axillary vein is spontaneous, patent, phasic, competent, compressible and demonstrates augmentation. Left brachial vein is compressible. Left cephalic vein is compressible. Left basilic vein is compressible. Left Lower Arm Left radial vein is compressible. Left ulnar vein is compressible. Patient Safety Prelim to [place]. VL/Venous Duplex US, Unilateral Interpretation Summary No evidence for acute deep venous thrombosis[left] upper extremity with patent and compressible cephalic and basilic veins. Ordering Physician: Rachel Stacy Referring Physician: Demetrio Banks Performed By: January Antonio RVT ?
--- NOTE | 2021-03-17 11:19 | EDS_ITS ---
HPI History of Present Illness Chief Complaint: Edema Informant: patient Onset/Context/Timing Onset: Days Context: Gradual Onset Current Severity: Moderate Maximum Severity: Moderate Narrative Narrative: Patient presents with swelling to the left arm, neck, face. He states it has been progressive over the past 5 to 7 days. Patient was admitted to the hospital 3 weeks ago with chest pain and had a negative cardiac work-up. He had a CTA of the chest at that time was unremarkable. Patient was started on atorvastatin, lisinopril, and sertraline. He denies any throat tightness or difficulty swallowing. PFSH PFSH Medical History Alcohol abuse Anxiety BiPAP (biphasic positive airway pressure) dependence Depression GERD (gastroesophageal reflux disease) Hypertension Kidney stones Migraines Sleep apnea Smoker Home Medications atorvastatin 10 mg PO QHS #30 tab 02/20/21 [Rx Last Taken Unknown] lisinopril 10 mg PO DAILY #30 tab 02/20/21 [Rx Last Taken Unknown] sertraline 50 mg PO DAILY #30 tab 02/20/21 [Rx Last Taken Unknown] Allergy/AdvReac Type Severity Reaction Status Date / Time No Known Allergies Allergy Verified 03/17/21 11:43 Family History Father Cancer from colorectal cancer x6 years ago. Mother Hypertension Surgical History S/P hernia surgery S/P tonsillectomy Social History household members: significant other, family and children housing: house number of children: 3 Smoking Status: Current some day smoker tobacco type: cigarettes and cigars per week: 1 alcohol intake: current alcohol intake frequency: a few times a week Alcohol type: beer details: 5-9 craft beers socially. ROS ROS ED Constitutional Constitutional ED: Denies chills or fever(s) Eyes Eyes: Denies change in vision ENT ENT ED: Denies sore throat Cardiovascular Cardiovascular: Reports chest pain Respiratory/Chest Respiratory/Chest: Denies cough or dyspnea Gastrointestinal Gastrointestinal: Denies abdominal pain, diarrhea, nausea or vomiting Genitourinary Genitourinary ED: Denies dysuria Musculoskeletal Musculoskeletal: Reports other Details: Left arm pain and edema ; Denies back pain Integumentary Denies rash Neurologic Neurologic: Denies headache(s) or weakness Psychiatric Psychiatric: Denies anxiety or depression Endocrine Endocrinology: Denies polydipsia or polyuria Allergic/Immunologic Allergic/Immunologic ED: Denies urticaria EXAM Physical Exam Const Vital Signs: 03/17/21 10:44 03/17/21 11:41 03/17/21 14:00 Temperature 97 F L Temperature Source Temporal Pulse Rate 98 81 Respiratory Rate 19 H 6 L Respiratory Effort Normal Non-Labored Respiratory Pattern Normal Blood Pressure 159/106 H Blood Pressure Mean 123 Pulse Ox 97 97 Oxygen Delivery Method Room Air Positive well nourished and well developed General Appearance ED: well developed HEENT Reports normocephalic and head/scalp atraumatic Eyes PERRL and EOMs intact bilaterally Neck supple Chest Wall inspection of chest normal and palpation of chest normal Resp normal respiratory effort and clear to auscultation bilaterally Cardio regular rate and regular rhythm GI normal to inspection, nondistended, normoactive bowel sounds Palpation: soft Extremity Extremity Narrative: Minimal edema to the left upper extremity. Strong distal pulses. Full range of motion. Neuro oriented x3 and no sensory deficits noted Sensorium / Orientation: alert Motor Exam: strength 5/5 throughout Psych mental status grossly normal Skin no rashes or lesions noted MDM MDM MDM Narrative Medical decision making narrative: Patient was placed on library monitor. EKG, labs, CT chest, venous ultrasound of the upper arm is obtained. Lab Data Attestation: I reviewed the patient's lab results. Labs: Laboratory Results - last 24 hr 03/17/21 03/17/21 11:30 11:30 WBC 7.2 RBC 4.22 L Hgb 14.5 Hct 41.9 MCV 99.3 H MCH 34.4 H MCHC 34.6 RDW Std Deviation 46.6 H RDW Coeff of Linsey 12.9 Plt Count 210 MPV 9.6 Immature Gran % (Auto) 2.400 H Neut % (Auto) 75.1 H Lymph % (Auto) 9.4 L [place] % (Auto) 8.2 Eos % (Auto) 4.3 Baso % (Auto) 0.6 Absolute Neuts (auto) 5.4 Absolute Lymphs (auto) 0.67 L Nucleated RBC % 0 Sodium 139 Potassium 3.9 Chloride 107 Carbon Dioxide 26.0 Anion Gap 6 BUN 8 Creatinine 0.88 Estim Creat Clear Calc 134.92 Est GFR (MDRD) Af Amer 126 Est GFR (MDRD) Non-Af 104 BUN/Creatinine Ratio 9.1 L Glucose 101 Calcium 8.3 L Troponin I High Sens 95.0 H* Radiography Diagnostic Testing: Radiology Impression Chest CT 03/17/21 11:17 IMPRESSION: Fatty infiltration of the liver. No acute abnormality is seen. Electronically Signed: Rafa Farley MD at 12:41 EDT , Service support , Venous Doppler Study 03/17/21 11:17 Interpretation Summary No evidence for acute deep venous thrombosis[left] upper extremity with patent and compressible cephalic and basilic veins. Ordering Physician: Rachel Stacy Referring Physician: Demetrio Banks Performed By: January Antonio Sheba ? EKG Initial EKG: Attestation: I personally reviewed and interpreted this EKG as follows: Interpretation: Sinus Rhythm (Sinus at [address].) Treatment and Re-Evaluation Comments:: Patient's test results are reviewed. Venous ultrasound is unremarkable. CT chest reveals no evidence of venous thromboembolism. No acute abnormalities noted. Lab work does reveal a troponin of 95. When patient was admitted approximately 1 month ago troponins were in the 40s and 50s. He had a negative stress test at that time. Patient does have ongoing chest pain. I discussed the case with Dr. Rodriges. He asked that the patient be admitted for c ycling of enzymes and he will see the patient in consultation to determine if further testing is needed. Discharge Plan Triage Chief Complaint: Edema ED Provider: Rachel Stacy Dx/Rx/DC Orders Clinical Impression: Chest pain Prescriptions: No Action sertraline 50 mg Tablet 50 mg PO DAILY Qty: 30 RF: 0 lisinopril 10 mg tablet 10 mg PO DAILY Qty: 30 RF: 0 atorvastatin 10 mg tablet 10 mg PO QHS Qty: 30 RF: 0 Primary Care Provider: Demetrio Banks Referrals: Demetrio Banks MD [Primary Care Provider] - Disposition Disposition: Acute Care [facility]
[2021-03-17] MEDS: Ondansetron 4 MG/2 ML Vial IV (11:39)
[2021-03-17] MEDS: Morphine 4 MG/ML Syringe IV (11:39)
[2021-03-17 11:42] LABS: Absolute Lymphocyte Count 0.67 X10^3/uL (0.83-4.51); Absolute Neutrophil Count 5.4 X10^3/uL (2.0-7.7); Basophil# 0.04 X10^3/uL; Basophil% 0.6 % (0-1); Eosinophil# 0.31 X10^3/uL; Eosinophils% 4.3 % (0-5); Hematocrit 41.9 % (40-54); Hemoglobin 14.5 g/dL (13.0-16.5); Lymphocyte # 0.67 X10^3/ul (0.83-4.51); Lymphocyte % 9.4 % (19-41); Mean Corp Hgb Conc 34.6 g/dL (32-36); Mean Corpuscular Hgb 34.4 pg (27.0-32.0); Mean Corpuscular Volume 99.3 fL (80-94); Mean Platelet Vol. 9.6 fl (6.2-12.0); Monocyte# 0.59 X10^3/uL; Monocyte% 8.2 % (0-10); NRBC Flagged by Analyzer 0 % (0-5); Neutrophil # 5.38 X10^3/uL (2.7-7.7); Neutrophil % 75.1 % (47-70); Platelet Count 210 K/mm3 (150-450); RBC Distribution Width CV 12.9 % (11.6-14.6); RBC Distribution Width SD 46.6 fl (35.1-43.9); Red Blood Count 4.22 M/mm3 (4.6-6.2); White Blood Count 7.2 K/mm3 (4.4-11.0)
[2021-03-17 11:57] LABS: Anion Gap 6 (5-15); BUN 8 mg/dL (7-18); BUN/Creat Ratio 9.1 RATIO (10-20); Calcium,Total 8.3 mg/dL (8.5-10.1); Chloride 107 mmol/L (98-107); Creatinine, Serum 0.88 mg/dL (0.70-1.30); EST Glomerular Filtration Rate 104 mL/min (>60); Est Glom Filt Rate - Afr Amer 126 mL/min (>60); Estimated Creatinine Clearance 134.92 ml/min; Glucose 101 mg/dL (74-106); Potassium 3.9 mmol/L (3.5-5.1); Sodium Level 139 mmol/L (136-145)
--- NOTE | 2021-03-17 14:38 | PCM.HP.STD ---
[facility] - General General Date of Admission: 03/17/21 Date of Service: 03/17/21 Chief Complaint: Left upper extremity swelling HPI Narrative SABRINA BRUMFIELD, is a 35 M who presents chest discomfort as well as swelling involving the left upper extremities and ankles. Patient has past medical history which is significant for hypertension as well as anxiety disorder. Was on admission a month prior to this current admission with chest pain underwent a nuclear stress test which was reported to be negative for stress-induced ischemia. Patient reported 3-day history of swelling involving the neck as well as left upper extremity and ankles. He also did develop some chest discomfort. Presented to the emergency department as a result. Work-up in the ED was unremarkable (he had CT of the chest which was read as nonacute and ultrasound of the left upper extremity which is negative for DVT). Patient was however found to have elevated troponin admitted to a monitored bed for further management PFSH Medical History Alcohol abuse Anxiety BiPAP (biphasic positive airway pressure) dependence Depression GERD (gastroesophageal reflux disease) Hypertension Kidney stones Migraines Obesity, Class III, BMI 40-49.9 (morbid obesity) Sleep apnea Smoker Home Medications atorvastatin 10 mg PO QHS #30 tab 02/20/21 [Rx Last Taken 03/16/21] lisinopril 10 mg PO DAILY #30 tab 02/20/21 [Rx Last Taken 03/17/21] sertraline 50 mg PO DAILY #30 tab 02/20/21 [Rx Last Taken 03/17/21] naproxen 500 mg PO BID PRN PRN 03/17/21 [History Last Taken 03/17/21] Allergy/AdvReac Type Severity Reaction Status Date / Time No Known Allergies Allergy Verified 03/17/21 11:43 Family History Father Cancer from colorectal cancer x6 years ago. Mother Hypertension Surgical History S/P hernia surgery S/P tonsillectomy Social History household members: significant other, family and children housing: house number of children: 3 Smoking Status: Current some day smoker tobacco type: cigarettes and cigars per week: 1 alcohol intake: current alcohol intake frequency: a few times a week Alcohol type: beer details: 5-9 craft beers socially. ROS ROS Narrative GENERAL: denies fever, chills, night sweats, weight loss, anorexia HEENT: denies headache, sinus congestion, or drainage, dysphagia RESPIRATORY: denies cough, sputum production, shortness of breath, CARDIAC: d chest pain, palpitations, orthopnea, PND GASTROINTESTINAL: denies abdominal pain, nausea, vomiting, melena, GENITOURINARY: denies dysuria, urgency, frequency, heamaturia EXTREMITY: denies swelling MUSCULOSKELETAL: denies current joint pain or tenderness NEUROLOGIC: denies focal numbness, weakness, tingling HEMATOLOGIC: denies easy bruising and/or hemorrhage INTEGUMENT: denies rashes PSYCHIATRIC: denies suicidal or homicidal ideation Vital Signs Vital Signs Vital Signs: 03/17/21 10:44 03/17/21 11:41 03/17/21 14:00 Temperature 97 F L Temperature Source Temporal Pulse Rate 98 81 Respiratory Rate 19 H 6 L Respiratory Effort Normal Non-Labored Respiratory Pattern Normal Blood Pressure 159/106 H Blood Pressure Mean 123 Pulse Ox 97 97 Oxygen Delivery Method Room Air Weight Weight: 149.3 kg Body Mass Index (BMI) 42.3 Physical Exam Narrative GENERAL: cooperative HEENT: Atraumatic; EYES; Anicteric, Normal Conjunctiva NECK; supple, normal thyroid, RESPIRATORY: Diminished to auscultation CARDIOVASCULAR: Regular S1 S2, GI: soft, normoactive bowel sounds, : No Renal angle tenderness; EXTREMITIES: Trace bipedal edema, no clubbing, MUSCULOSKELETAL: no muscle waisting NEURO: Awake; no lateralizing signs. SKIN: No Rash PSYCH; Flat affect Results Lab / Micro Data Result Diagrams: 03/17/21 11:30 03/17/21 11:30 Labs: Laboratory Results - last 24 hr 03/17/21 11:30: WBC 7.2, RBC 4.22 L, Hgb 14.5, Hct 41.9, MCV 99.3 H, MCH 34.4 H, MCHC 34.6, RDW Std Deviation 46.6 H, RDW Coeff of Linsey 12.9, Plt Count 210, MPV 9.6, Immature Gran % (Auto) 2.400 H, Neut % (Auto) 75.1 H, Lymph % (Auto) 9.4 L, [place] % (Auto) 8.2, Eos % (Auto) 4.3, Baso % (Auto) 0.6, Absolute Neuts (auto) 5.4, Absolute Lymphs (auto) 0.67 L, Nucleated RBC % 0 03/17/21 11:30: Sodium 139, Potassium 3.9, Chloride 107, Carbon Dioxide 26.0, Anion Gap 6, BUN 8, Creatinine 0.88, Estim Creat Clear Calc 134.92, Est GFR (MDRD) Af Amer 126, Est GFR (MDRD) Non-Af 104, BUN/Creatinine Ratio 9.1 L, Glucose 101, Calcium 8.3 L, Troponin I High Sens 95.0 H* Radiology Impression Chest CT 03/17/21 11:17 IMPRESSION: Fatty infiltration of the liver. No acute abnormality is seen. Electronically Signed: Rafa Farley MD at 12:41 EDT , Service support , Venous Doppler Study 03/17/21 11:17 Interpretation Summary No evidence for acute deep venous thrombosis[left] upper extremity with patent and compressible cephalic and basilic veins. Ordering Physician: Rachel Stacy Referring Physician: Demetrio Banks Performed By: January Antonio RVT ? Assessment & Plan Assessment/Plan (1) Chest pain: (2) Hypertension: (3) Obesity, Class III, BMI 40-49.9 (morbid obesity): PLAN: Patient is a 35-year-old gentleman presenting with left upper extremity swelling as well as chest discomfort 1. Left upper extremity swelling ?Etiology not clear patient underwent evaluation in the ED with CTA as well as venous duplex all of which came back negative. Patient is on lisinopril this was held. 2. Chest discomfort with slightly elevated troponin ?Admitted to a monitored bed with subsequent serial cardiac enzymes ordered. Patient underwent a nuclear stress test a month ago which was negative for stress-induced ischemia repeat was therefore not ordered consult instead placed to cardiology 3. Essential hypertension ?Blood pressure controlled 4. Depression with anxiety ?Patient is on SSRI did continue 5. Obesity with BMI of 42.3 ?Weight loss advised 6. Obstructive sleep apnea ?By history 7. Tobacco dependence - Counseled on cessation, offered nicotine patch for tobacco cravings 8. DVT prophylaxis ?Lovenox Charges/Coding Visit Charges OBSV E&M: 50539 Initial observation care L3
--- NOTE | 2021-03-17 14:47 | NURSING ---
114 OBS SHEY VALENTINE
[2021-03-17] MEDS: HYDROmorphone 0.5 MG/0.5 ML SYRINGE IV (14:52)
[2021-03-17] MEDS: Aspirin 81 MG TAB.CHEW 324 MG PO (14:52)
--- NOTE | 2021-03-17 15:13 | EKG12_ITS ---
Test Reason : CP Blood Pressure : / mmHG Vent. Rate : 084 BPM Atrial Rate : 084 BPM P-R Int : 160 ms QRS Dur : 094 ms QT Int : 398 ms P-R-T Axes : 034 047 026 degrees QTc Int : 470 ms Normal sinus rhythm Inferior infarct , age undetermined , cannot be excluded Abnormal ECG Confirmed by NAREN SON, MIKAELA ([id number]), story editor LEONARD VITALE ([id number]) on 03/20/2021 10:02:50 AM Referred By: DILLON/JUAN Confirmed By:MIKAELA SNEED MD
--- NOTE | 2021-03-17 15:19 | ECHOCS_ITS ---
Reason For Study: CHEST PAIN Procedure This was a 2D Doppler, Color Flow transthoracic echocardiogram. The study was technically difficult. Contrast injection was performed. Exam performed portable in patient room. Left Ventricle Normal LV size. Left ventricular systolic function is normal. The estimated ejection fraction is 70 %. No regional wall motion abnormalities noted. Right Ventricle Normal RV size. Normal systolic function. Atria Normal left atrium. Normal right atrium. Mitral Valve Normal mitral valve. Systolic anterior motion of the mitral valve. Mild (1+) eccentric mitral valve insufficiency. Tricuspid Valve Normal tricuspid valve. Mild (1+) tricuspid valve insufficiency. Pulmonary artery systolic pressure is 40 mmHg. Aortic Valve Trisinus/trileaflet aortic valve. Pulmonic Valve Normal pulmonic valve. Great Vessels Normal aortic root. The pulmonary artery is normal size. Normal inferior vena cava. Pericardium/Pleural No pericardial effusion. Medication Diluted definity 2.5ml given slow IV push to enhance endocardial definition. MMode/2D Measurements & Calculations LVIDd: 4.7 cm IVSd: 1.0 cm Ao root diam: 3.6 cm LVIDs: 2.9 cm LVPWd: 1.1 cm RVDd: 3.8 cm FS: 36.9 % LAV(MOD-bp): 42.5 ml LVAd ap4: 40.2 cm2 LVAd ap2: 37.2 cm2 LAV(MOD-bp) Indexed: 15.8 ml/m2 LVLd ap4: 9.4 cm LVLd ap2: 9.0 cm LAV(MOD-sp2): 46.4 ml EDV(MOD-sp4): 135.3 ml EDV(MOD-sp2): 124.5 ml LAV(MOD-sp4): 37.8 ml EDV(sp4-el): 145.6 ml EDV(sp2-el): 130.6 ml LVAs ap4: 22.9 cm2 LVAs ap2: 18.8 cm2 LVLs ap4: 7.9 cm LVLs ap2: 7.2 cm ESV(MOD-sp4): 53.3 ml ESV(MOD-sp2): 40.2 ml ESV(sp4-el): 56.4 ml ESV(sp2-el): 42.0 ml EF(MOD-sp4): 60.6 % EF(MOD-sp2): 67.7 % EF(sp4-el): 61.3 % SV(MOD-sp4): 81.9 ml SV(MOD-sp2): 84.4 ml SV(sp4-el): 89.2 ml LA A4 area: 15.7 cm2 LA dimension(2D): 4.5 cm RA A4 area: 12.4 cm2 Time Measurements MV dec time: 0.16 sec Doppler Measurements & Calculations MV E max jonn: 84.2 cm/sec Lat Peak E' Jonn: 10.6 cm/sec Med Peak E' Jonn: 7.5 cm/sec MV A max jonn: 64.2 cm/sec E/E' lat: 7.9 E/E' med: 11.2 MV E/A: 1.3 Ao V2 max: 151.1 cm/sec LV V1 max: 132.4 cm/sec PA V2 max: 105.7 cm/sec Ao max P.2 mmHg LV V1 max P.0 mmHg TR max jonn: 313.0 cm/sec TR max P.2 mmHg ECHO/Echo Complete W/ Contrast Interpretation Summary Normal LV size. Left ventricular systolic function is normal. The estimated ejection fraction is 70 %. Mild (1+) eccentric mitral valve insufficiency. Contrast injection was performed. Ordering Physician: Roman Marte Referring Physician: RICHA SORENSEN Performed By: Yohana Corbin RDCS, RVT
[2021-03-17 16:23] LABS: Troponin-I HS 95.1 pg/mL (3.0-78.5)
--- NOTE | 2021-03-17 20:02 | CON.PCM.CA_ITS ---
Assessment & Plan Assessment/Plan (1) Chest pain: PLAN: He presents with chest pain which is somewhat atypical with abnormal cardiac enzymes which however are flat. There does not appear to be a rise and fall. However due to the fact that he continues to have the chest discomfort despite a normal stress test it may be prudent to assess his coronary anatomy with a left heart catheterization. Depending on the findings further recommendations will be made. The risk benefits and alternatives have been explained to him he understands and agrees to proceed. HPI Consult Data Date of Consult: 03/17/21 HPI Narrative HPI Narrative: SABRINA BRUMFIELD, is a 35 M who presents with chest discomfort which he says has been going on for approximately a month as well as left upper and ankle swelling. He was admitted to the hospital approximately a month ago with chest discomfort and underwent a stress test which was normal. He also underwent a CT scan of his chest as well as ultrasound of the left upper extremity and lower extremity which were all negative for DVT. He presented again with chest discomfort was noted to have an abnormal cardiac enzyme test and cardiology was called for further evaluation and management. PFSH Medical History Alcohol abuse Anxiety BiPAP (biphasic positive airway pressure) dependence Depression GERD (gastroesophageal reflux disease) Hypertension Kidney stones Migraines Obesity, Class III, BMI 40-49.9 (morbid obesity) Sleep apnea Smoker Home Medications atorvastatin 10 mg PO QHS #30 tab 02/20/21 [Rx Last Taken 03/16/21] lisinopril 10 mg PO DAILY #30 tab 02/20/21 [Rx Last Taken 03/17/21] sertraline 50 mg PO DAILY #30 tab 02/20/21 [Rx Last Taken 03/17/21] naproxen 500 mg PO BID PRN PRN 03/17/21 [History Last Taken 03/17/21] Allergy/AdvReac Type Severity Reaction Status Date / Time No Known Allergies Allergy Verified 03/17/21 11:43 Family History Father Cancer from colorectal cancer x6 years ago. Mother Hypertension Surgical History S/P hernia surgery S/P tonsillectomy Social History household members: significant other, family and children housing: house number of children: 3 Smoking Status: Current some day smoker tobacco type: cigarettes and cigars per week: 1 alcohol intake: current alcohol intake frequency: a few times a week Alcohol type: beer details: 5-9 craft beers socially. ROS Constitutional Constitutional: Denies fever(s) or weight loss Eyes Eyes: Reports as per HPI ENT HEENT: Reports systems reviewed and no addt'l complaints, except as documented Cardiovascular Cardiovascular: Reports systems reviewed and no addt'l complaints, except as documented and other Respiratory/Chest Respiratory/Chest: Reports other Gastrointestinal Gastrointestinal: Denies change in bowel habits, nausea, vomiting or weight changes Genitourinary Genitourinary: Denies difficulty urinating Musculoskeletal Musculoskeletal: Denies joint stiffness or muscle weakness Integumentary Integumentary: Denies lesions Neurologic Neurologic: Denies dizziness or syncope Psychiatric Psychiatric: Denies anxiety Endocrine Endocrinology: Denies excessive sweating or fatigue Hematologic/Lymphatic Hematologic/Lymphatic: Denies anemia Allergic/Immunologic Allergic/Immunologic: Denies seasonal rhinorrhea Physical Exam Const oriented x3 and healthy appearing Orientation / Consciousness: awake HEENT normocephalic Eyes PERRL and conjunctivae normal Neck supple, no JVD and no carotid bruits Chest inspection of chest normal Resp normal respiratory effort and clear to auscultation bilaterally Cardio Palpation: normal PMI Rate: regular rate Rhythm: regular rhythm Heart Sounds: S1 normal and S2 normal Peripheral Pulses: pulses 2+ throughout GI normal to inspection, nondistended, normoactive bowel sounds Extremity normal to inspection and no clubbing, cyanosis or edema Psych mental status grossly normal Objective Data Vital Signs: Vital Signs Temp Pulse Resp BP Pulse Ox 98.1 F 86 18 156/103 H 96 03/17/21 15:29 03/17/21 19:00 03/17/21 15:29 03/17/21 15:29 03/17/21 15:45 Oxygen Delivery Method Room Air Weight: 721 lb 2.112 oz Body Mass Index (BMI) 92.5 Intake & Output: Intake and Output for Last 24 Hours 03/15/21 03/16/21 03/17/21 23:59 23:59 23:59 Intake Total 120 / 120 Balance 120 / 120 Lab / Micro Data Result Diagrams: 03/17/21 11:30 03/17/21 11:30 Labs: Laboratory Results - last 24 hr 03/17/21 11:30: WBC 7.2, RBC 4.22 L, Hgb 14.5, Hct 41.9, MCV 99.3 H, MCH 34.4 H, MCHC 34.6, RDW Std Deviation 46.6 H, RDW Coeff of Linsey 12.9, Plt Count 210, MPV 9.6, Immature Gran % (Auto) 2.400 H, Neut % (Auto) 75.1 H, Lymph % (Auto) 9.4 L, [place] % (Auto) 8.2, Eos % (Auto) 4.3, Baso % (Auto) 0.6, Absolute Neuts (auto) 5.4, Absolute Lymphs (auto) 0.67 L, Nucleated RBC % 0 03/17/21 11:30: Sodium 139, Potassium 3.9, Chloride 107, Carbon Dioxide 26.0, Anion Gap 6, BUN 8, Creatinine 0.88, Estim Creat Clear Calc 134.92, Est GFR (MDRD) Af Amer 126, Est GFR (MDRD) Non-Af 104, BUN/Creatinine Ratio 9.1 L, Glucose 101, Calcium 8.3 L, Troponin I High Sens 95.0 H* 03/17/21 15:28: Troponin I High Sens 95.1 H* 03/17/21 15:40: COVID-19 ([facility]) Not Detected Cardiology Labs/Tests 03/17/21 11:30: WBC 7.2, RBC 4.22 L, Hgb 14.5, Hct 41.9, MCV 99.3 H, MCH 34.4 H, MCHC 34.6, Plt Count 210, MPV 9.6, Immature Gran % (Auto) 2.400 H, Neut % (Auto) 75.1 H, Lymph % (Auto) 9.4 L, [place] % (Auto) 8.2, Eos % (Auto) 4.3, Baso % (Auto) 0.6, Absolute Neuts (auto) 5.4, Nucleated RBC % 0 03/17/21 11:30: Sodium 139, Potassium 3.9, Chloride 107, Carbon Dioxide 26.0, Anion Gap 6, BUN 8, Creatinine 0.88, Est GFR (MDRD) Af Amer 126, Est GFR (MDRD) Non-Af 104, BUN/Creatinine Ratio 9.1 L, Glucose 101, Calcium 8.3 L Rhythm: EKG: ECHO: Stress Test: Cardiac Cath: PCI: CT Surgery: Holter monitor: EPS: PPM: CXR: Chest CT Scan: Radiography Diagnostic Testing: Radiology Impression Chest CT 03/17/21 11:17 IMPRESSION: Fatty infiltration of the liver. No acute abnormality is seen. Electronically Signed: Rafa Farley MD at 12:41 EDT , Service support , Venous Doppler Study 03/17/21 11:17 Interpretation Summary No evidence for acute deep venous thrombosis[left] upper extremity with patent and compressible cephalic and basilic veins. __ Ordering Physician: Rachel tSacy Referring Physician: Demetrio Banks Performed By: January Antonio RVT ?
[2021-03-17] MEDS: oxyCODONE 5 MG Tablet PO (20:06)
[2021-03-17 20:34] LABS: Troponin-I HS 94.1 pg/mL (3.0-78.5)
[2021-03-17] MEDS: Atorvastatin Calcium 10 MG Tablet PO (21:38)
[2021-03-17] MEDS: hydrOXYzine PAM 25 MG Capsule 50 MG PO (21:39)
[2021-03-17] MEDS: Metoprolol Tartrate 25 MG Tablet 12.5 MG PO (21:39)
[2021-03-17] MEDS: Acetaminophen 325 MG Tablet 650 MG PO (21:39)
[2021-03-17] MEDS: Enoxaparin 40 MG/0.4 ML Syringe SC (21:40)
[2021-03-17] MEDS: MELATONIN 3 MG TABLET PO (21:40)
[2021-03-18] VITALS (16 sets, daily range): BP systolic 146–169; BP diastolic 76–142; PULSE 65–100; RESP 14–20; TEMP 36.6–37; O2SAT 93–98
[2021-03-18] MEDS: oxyCODONE 5 MG Tablet PO (02:06)
[2021-03-18] MEDS: Metoprolol Tartrate 25 MG Tablet 12.5 MG PO (06:21)
[2021-03-18] MEDS: Aspirin E.C. 81 MG Tablet PO (06:22)
[2021-03-18 06:24] LABS: Absolute Lymphocyte Count 0.91 X10^3/uL (0.83-4.51); Absolute Neutrophil Count 4.2 X10^3/uL (2.0-7.7); Basophil# 0.03 X10^3/uL; Basophil% 0.5 % (0-1); Eosinophil# 0.42 X10^3/uL; Eosinophils% 6.8 % (0-5); Hematocrit 41.3 % (40-54); Hemoglobin 14.4 g/dL (13.0-16.5); Lymphocyte # 0.91 X10^3/ul (0.83-4.51); Lymphocyte % 14.7 % (19-41); Mean Corp Hgb Conc 34.9 g/dL (32-36); Mean Corpuscular Hgb 34.6 pg (27.0-32.0); Mean Corpuscular Volume 99.3 fL (80-94); Mean Platelet Vol. 10.3 fl (6.2-12.0); Monocyte% 9.7 % (0-10); NRBC Flagged by Analyzer 0 % (0-5); Neutrophil # 4.18 X10^3/uL (2.7-7.7); Neutrophil % 67.8 % (47-70); Platelet Count 212 K/mm3 (150-450); RBC Distribution Width CV 12.8 % (11.6-14.6); Red Blood Count 4.16 M/mm3 (4.6-6.2); White Blood Count 6.2 K/mm3 (4.4-11.0)
[2021-03-18 08:07] LABS: ALB/GLOB Ratio 0.7 RATIO (0.9-2.4); AST(SGOT) 40 U/L (15-37); Alanine Aminotransfer ALT/SGPT 43 U/L (16-61); Alkaline Phosphatase 73 U/L (45-117); Anion Gap 13 (5-15); BUN 9 mg/dL (7-18); BUN/Creat Ratio 10.1 RATIO (10-20); Calcium,Total 8.7 mg/dL (8.5-10.1); Chloride 104 mmol/L (98-107); EST Glomerular Filtration Rate 102 mL/min (>60); Est Glom Filt Rate - Afr Amer 123 mL/min (>60); Estimated Creatinine Clearance 131.93 ml/min; Globulin 4.2 g/dL (2.2-4.2); Glucose 113 mg/dL (74-106); Potassium 3.8 mmol/L (3.5-5.1); Protein, Total 7.2 g/dL (6.4-8.2); Sodium Level 137 mmol/L (136-145)
--- NOTE | 2021-03-18 09:04 | PCM.PN.CARD ---
Subjective Subjective Patient seen and evaluated. Appears to be doing well. No cardiac complaints. Underwent cardiac catheterization today Objective Data Vital Signs: Vital Signs Temp Pulse Resp BP Pulse Ox 97.9 F 73 16 155/76 H 95 03/18/21 06:19 03/18/21 07:00 03/18/21 06:19 03/18/21 06:19 03/18/21 07:28 Oxygen Delivery Method Room Air Weight: 325 lb 2.909 oz Body Mass Index (BMI) 92.5 Intake & Output: Intake and Output for Last 24 Hours 03/16/21 03/17/21 03/18/21 23:59 23:59 23:59 Intake Total 360 / 360 60 / 60 Balance 360 / 360 60 / 60 Lab / Micro Data Result Diagrams: 03/18/21 05:16 03/18/21 05:16 Labs: Laboratory Results - last 24 hr 03/17/21 10:37: Troponin I High Sens 94.1 H* 03/17/21 11:30: WBC 7.2, RBC 4.22 L, Hgb 14.5, Hct 41.9, MCV 99.3 H, MCH 34.4 H, MCHC 34.6, RDW Std Deviation 46.6 H, RDW Coeff of Linsey 12.9, Plt Count 210, MPV 9.6, Immature Gran % (Auto) 2.400 H, Neut % (Auto) 75.1 H, Lymph % (Auto) 9.4 L, [place] % (Auto) 8.2, Eos % (Auto) 4.3, Baso % (Auto) 0.6, Absolute Neuts (auto) 5.4, Absolute Lymphs (auto) 0.67 L, Nucleated RBC % 0 03/17/21 11:30: Sodium 139, Potassium 3.9, Chloride 107, Carbon Dioxide 26.0, Anion Gap 6, BUN 8, Creatinine 0.88, Estim Creat Clear Calc 134.92, Est GFR (MDRD) Af Amer 126, Est GFR (MDRD) Non-Af 104, BUN/Creatinine Ratio 9.1 L, Glucose 101, Calcium 8.3 L, Troponin I High Sens 95.0 H* 03/17/21 15:28: Troponin I High Sens 95.1 H* 03/17/21 15:40: COVID-19 ([facility]) Not Detected 03/18/21 05:16: WBC 6.2, RBC 4.16 L, Hgb 14.4, Hct 41.3, MCV 99.3 H, MCH 34.6 H, MCHC 34.9, RDW Std Deviation 46.0 H, RDW Coeff of Linsey 12.8, Plt Count 212, MPV 10.3, Immature Gran % (Auto) 0.500, Neut % (Auto) 67.8, Lymph % (Auto) 14.7 L, [place] % (Auto) 9.7, Eos % (Auto) 6.8 H, Baso % (Auto) 0.5, Absolute Neuts (auto) 4.2, Absolute Lymphs (auto) 0.91, Nucleated RBC % 0 03/18/21 05:16: Sodium 137, Potassium 3.8, Chloride 104, Carbon Dioxide 20.0 L, Anion Gap 13, BUN 9, Creatinine 0.90, Estim Creat Clear Calc 131.93, Est GFR (MDRD) Af Amer 123, Est GFR (MDRD) Non-Af 102, BUN/Creatinine Ratio 10.1, Glucose 113 H, Calcium 8.7, Magnesium 2.0, Total Bilirubin 0.60, AST 40 H, ALT 43, Alkaline Phosphatase 73, Total Protein 7.2, Albumin 3.0 L, Globulin 4.2, Albumin/Globulin Ratio 0.7 L Cardiology Labs/Tests 03/17/21 11:30: WBC 7.2, RBC 4.22 L, Hgb 14.5, Hct 41.9, MCV 99.3 H, MCH 34.4 H, MCHC 34.6, Plt Count 210, MPV 9.6, Immature Gran % (Auto) 2.400 H, Neut % (Auto) 75.1 H, Lymph % (Auto) 9.4 L, [place] % (Auto) 8.2, Eos % (Auto) 4.3, Baso % (Auto) 0.6, Absolute Neuts (auto) 5.4, Nucleated RBC % 0 03/17/21 11:30: Sodium 139, Potassium 3.9, Chloride 107, Carbon Dioxide 26.0, Anion Gap 6, BUN 8, Creatinine 0.88, Est GFR (MDRD) Af Amer 126, Est GFR (MDRD) Non-Af 104, BUN/Creatinine Ratio 9.1 L, Glucose 101, Calcium 8.3 L 07/27/21 05:16: WBC 6.2, RBC 4.16 L, Hgb 14.4, Hct 41.3, MCV 99.3 H, MCH 34.6 H, MCHC 34.9, Plt Count 212, MPV 10.3, Immature Gran % (Auto) 0.500, Neut % (Auto) 67.8, Lymph % (Auto) 14.7 L, [place] % (Auto) 9.7, Eos % (Auto) 6.8 H, Baso % (Auto) 0.5, Absolute Neuts (auto) 4.2, Nucleated RBC % 0 03/18/21 05:16: Sodium 137, Potassium 3.8, Chloride 104, Carbon Dioxide 20.0 L, Anion Gap 13, BUN 9, Creatinine 0.90, Est GFR (MDRD) Af Amer 123, Est GFR (MDRD) Non-Af 102, BUN/Creatinine Ratio 10.1, Glucose 113 H, Calcium 8.7, Magnesium 2.0, Total Bilirubin 0.60 Rhythm: EKG: ECHO: Stress Test: Cardiac Cath: PCI: CT Surgery: Holter monitor: EPS: PPM: CXR: Chest CT Scan: Radiography Diagnostic Testing: Radiology Impression Chest CT 03/17/21 11:17 IMPRESSION: Fatty infiltration of the liver. No acute abnormality is seen. Electronically Signed: Rafa Farley MD at 12:41 EDT , Service support , Venous Doppler Study 03/17/21 11:17 Interpretation Summary No evidence for acute deep venous thrombosis[left] upper extremity with patent and compressible cephalic and basilic veins. Ordering Physician: Rachel Stacy Referring Physician: Demetrio Banks Performed By: January Antonio RVT ? Physical Exam Const oriented x3 and healthy appearing Orientation / Consciousness: awake HEENT normocephalic Eyes PERRL and conjunctivae normal Neck supple, no JVD and no carotid bruits Chest inspection of chest normal Resp normal respiratory effort and clear to auscultation bilaterally Cardio Palpation: normal PMI Rate: regular rate Rhythm: regular rhythm Heart Sounds: S1 normal and S2 normal Peripheral Pulses: pulses 2+ throughout GI normal to inspection, nondistended, normoactive bowel sounds Extremity normal to inspection and no clubbing, cyanosis or edema Psych mental status grossly normal Assessment & Plan Assessment/Plan (1) Chest pain: PLAN: He presents with chest pain which is somewhat atypical with abnormal cardiac enzymes which however are flat. Cardiac catheterization today demonstrated normal coronary arteries and normal left ventricular size and function. Would recommend search for alternate sources of chest pain. Patient can be discharged from my standpoint.
--- NOTE | 2021-03-18 09:45 | CASEMGMT ---
According to the [facility] website, the following are in-network tertiary facilities: [facility], [place], [facility], [facility], and . Saba HERRING CM
[2021-03-18] MEDS: Sertraline 50 MG Tablet PO (10:41)
[2021-03-18] MEDS: hydroCHLOROthiazide 25 MG Tablet PO (10:41)
--- NOTE | 2021-03-18 10:55 | PCM.DC.SUM ---
Providers Date of Admission: 03/17/21 Primary Care Physician: Dr. Demetrio Banks MD Consultations 03/17/21 15:13 Consult: Cardiology Routine Consulting Provider: Shiv Rodriges Reason for Consult: CHEST PAIN EMERGENT Consult: No MD Notified: Yes Date Notified: 03/17/21 Time Notified: 14:45 Method of Notification: Page Method of Consult:: In-Person Reason For Visit: CHEST PAIN Diagnosis Discharge Diagnosis (1) Chest pain: Status: Acute Code(s): R07.9 - Chest pain, unspecified Medications at Discharge Home Medications atorvastatin 10 mg PO QHS #30 tab 02/20/21 sertraline 50 mg PO DAILY #30 tab 02/20/21 naproxen 500 mg PO BID PRN PRN 03/17/21 hydrochlorothiazide 25 mg PO DAILY #90 tab 03/18/21 Hospital Course Summary of Care Provided Minutes Spent on Discharge: 35 Hospital Course: Patient is a 35-year-old gentleman presenting with left upper extremity swelling as well as chest discomfort 1. Left upper extremity swelling ?Etiology not clear patient underwent evaluation in the ED with CTA as well as venous duplex all of which came back negative. Patient is on lisinopril this was held. 2. Chest discomfort with slightly elevated troponin ?Admitted to a monitored bed with subsequent serial cardiac enzymes ordered. Patient underwent a nuclear stress test a month ago which was negative for stress-induced ischemia repeat was therefore not ordered consult instead placed to cardiology -Patient underwent left heart catheterization on 03/18/[address] Daniels. Patient was noted to have normal coronaries. Patient was instructed home to follow-up with PCP for subsequent work-up of his noncardiac chest discomfort 3. Essential hypertension ?Blood pressure controlled -Patient was on lisinopril this was discontinued prescribed HCTZ 25 mg daily 4. Depression with anxiety ?Patient is on SSRI did continue 5. Obesity with BMI of 42.3 ?Weight loss advised 6. Obstructive sleep apnea ?By history 7. Tobacco dependence - Counseled on cessation, offered nicotine patch for tobacco cravings 8. DVT prophylaxis ?Lovenox Physical Exam Narrative GENERAL: cooperative HEENT: Atraumatic; EYES; Anicteric, Normal Conjunctiva NECK; supple, normal thyroid, RESPIRATORY: Diminished to auscultation CARDIOVASCULAR: Regular S1 S2, GI: soft, normoactive bowel sounds, : No Renal angle tenderness; EXTREMITIES: Trace bipedal edema, no clubbing, MUSCULOSKELETAL: no muscle waisting NEURO: Awake; no lateralizing signs. SKIN: No Rash PSYCH; Flat affect Weight / BMI Weight Weight: 147.5 kg Body Mass Index (BMI) 92.5 ABG / Lab / Microbiology Data Result Diagrams: 03/18/21 05:16 03/18/21 05:16 Laboratory: Laboratory Results - last 24 hr 03/17/21 10:37: Troponin I High Sens 94.1 H* 03/17/21 11:30: WBC 7.2, RBC 4.22 L, Hgb 14.5, Hct 41.9, MCV 99.3 H, MCH 34.4 H, MCHC 34.6, RDW Std Deviation 46.6 H, RDW Coeff of Linsey 12.9, Plt Count 210, MPV 9.6, Immature Gran % (Auto) 2.400 H, Neut % (Auto) 75.1 H, Lymph % (Auto) 9.4 L, Carver % (Auto) 8.2, Eos % (Auto) 4.3, Baso % (Auto) 0.6, Absolute Neuts (auto) 5.4, Absolute Lymphs (auto) 0.67 L, Nucleated RBC % 0 03/17/21 11:30: Sodium 139, Potassium 3.9, Chloride 107, Carbon Dioxide 26.0, Anion Gap 6, BUN 8, Creatinine 0.88, Estim Creat Clear Calc 134.92, Est GFR (MDRD) Af Amer 126, Est GFR (MDRD) Non-Af 104, BUN/Creatinine Ratio 9.1 L, Glucose 101, Calcium 8.3 L, Troponin I High Sens 95.0 H* 03/17/21 15:28: Troponin I High Sens 95.1 H* 03/17/21 15:40: COVID-19 ([place]) Not Detected 03/18/21 05:16: WBC 6.2, RBC 4.16 L, Hgb 14.4, Hct 41.3, MCV 99.3 H, MCH 34.6 H, MCHC 34.9, RDW Std Deviation 46.0 H, RDW Coeff of Linsey 12.8, Plt Count 212, MPV 10.3, Immature Gran % (Auto) 0.500, Neut % (Auto) 67.8, Lymph % (Auto) 14.7 L, Carver % (Auto) 9.7, Eos % (Auto) 6.8 H, Baso % (Auto) 0.5, Absolute Neuts (auto) 4.2, Absolute Lymphs (auto) 0.91, Nucleated RBC % 0 03/18/21 05:16: Sodium 137, Potassium 3.8, Chloride 104, Carbon Dioxide 20.0 L, Anion Gap 13, BUN 9, Creatinine 0.90, Estim Creat Clear Calc 131.93, Est GFR (MDRD) Af Amer 123, Est GFR (MDRD) Non-Af 102, BUN/Creatinine Ratio 10.1, Glucose 113 H, Calcium 8.7, Magnesium 2.0, Total Bilirubin 0.60, AST 40 H, ALT 43, Alkaline Phosphatase 73, Total Protein 7.2, Albumin 3.0 L, Globulin 4.2, Albumin/Globulin Ratio 0.7 L Radiography Diagnostic Testing: Radiology Impression Chest CT 03/17/21 11:17 IMPRESSION: Fatty infiltration of the liver. No acute abnormality is seen. Electronically Signed: Rafa Farley MD at 12:41 EDT , Service support , Venous Doppler Study 03/17/21 11:17 Interpretation Summary No evidence for acute deep venous thrombosis[left] upper extremity with patent and compressible cephalic and basilic veins. Ordering Physician: Rachel Stacy Referring Physician: Demetrio Banks Performed By: January Antonio RVT ? D/C Instructions Discharge Diet: No restrictions Discharge Activity: Return to Normal Activity Call your doctor if you observe: Fever of 101 or Higher, Shortness of breath, Fainting spells and Chest pain Meaningful Use Info Meaningful Use Diagnoses (Choose all that apply): None applicable Discharge Plan Admission Admit Date/Time: 03/17/21 14:50 Attending Provider: Roman Marte Primary Care Provider: Demetrio Banks Consulting Providers: Shiv Rodriges Instructions Patient Instructions: ED Chest Pain, Noncardiac Discharge Orders/Prescriptions Prescriptions: New hydrochlorothiazide 25 mg Tablet 25 mg PO DAILY Qty: 90 RF: 0 Continued sertraline 50 mg Tablet 50 mg PO DAILY Qty: 30 RF: 0 atorvastatin 10 mg tablet 10 mg PO QHS Qty: 30 RF: 0 naproxen 500 mg tablet 500 mg PO BID PRN PRN (Reason: Pain) RF: 0 Discontinued lisinopril 10 mg tablet 10 mg PO DAILY Qty: 30 RF: 0 Referrals / Follow Up: Demetrio Banks MD [Primary Care Provider] - In 1 Week Disposition Disposition (needs filled in before D/C Order can be placed): Home, Self Care Charges/Coding Visit Charges OBSV E&M: 12407 Observation care discharge
--- NOTE | 2021-03-18 11:02 | PCM.DC ---
Discharge Instructions Diet Discharge Diet: No restrictions Dressing / Incision Call your doctor if you observe: Fever of 101 or Higher, Shortness of breath, Fainting spells and Chest pain Follow Up Care Test Results: Test results from this visit will be discussed in further detail at your follow-up appointment, if applicable. Discharge Plan Admission Admit Date/Time: 03/17/21 14:50 Attending Provider: Roman Marte Primary Care Provider: Demetrio Banks Consulting Providers: Shiv Rodriges Instructions Patient Instructions: ED Chest Pain, Noncardiac Discharge Orders/Prescriptions Prescriptions: New hydrochlorothiazide 25 mg Tablet 25 mg PO DAILY Qty: 90 RF: 0 Continued sertraline 50 mg Tablet 50 mg PO DAILY Qty: 30 RF: 0 atorvastatin 10 mg tablet 10 mg PO QHS Qty: 30 RF: 0 naproxen 500 mg tablet 500 mg PO BID PRN PRN (Reason: Pain) RF: 0 Discontinued lisinopril 10 mg tablet 10 mg PO DAILY Qty: 30 RF: 0 Referrals / Follow Up: Demetrio Banks MD [Primary Care Provider] - In 1 Week Disposition Disposition (needs filled in before D/C Order can be placed): Home, Self Care
--- NOTE | 2021-03-24 14:38 | CL.D_ITS ---
Patient Name: SABRINA BRUMFIELD Study Date: 03/18/2021 Performing: Shiv Rodriges MD Ht: 74.02 inches 188 cm : 1985 Wt: 326.28 lbs 148 kg Age: 35 Gender: male BSA: 2.68 PROCEDURE(S) PERFORMED [id number]/LV CLINICAL PROFILE AND INDICATIONS Indications: Chest pain Heart Failure: None Stress/Imaging Date: 02/20/2021 CONCLUSIONS Normal coronary arteries RECOMMENDATIONS Follow up with primary care physician DESCRIPTION OF PROCEDURE The patient arrived to the procedure lab. The risks and benefits of the procedure as well as a full d escription of our services here and current unavailability of surgical backup were fully explained to the patient and/or their significant other prior to the catheterization. The Timeout was completed, verifying the correct patient and procedure. The patient's procedural site was prepped and draped in the usual fashion. Local anesthetic was given subcutaneously to right radial region with Lidocaine 2% . Using a modified Seldinger technique, arterial access was obtained via the right radial artery, a 6 Fr sheath was inserted. Right Coronary Artery selective angiography was then performed in multiple v iews using a 5 Fr. 4.0 [place] catheter. Left Coronary Artery selective angiography was performed in mu ltiple views using a 5 Fr. 4.0 [place] catheter. Left Ventriculography was performed in [place] projection using a 5 Fr. Pig[place] catheter. LV to AO pullback pressures were then recorded.The arterial sheath was pulled and a TR Band was applied for hemostasis w/ 12ml air CORONARY ANGIOGRAPHY DOMINANCE: Left Dominant LEFT HEART ASSESSMENT Left Ventricular Ejection Fraction: by LV Gram 70 % LEFT MAIN: Angiographically normal LEFT ANTERIOR DESCENDING ARTERY: Angiographically normal CIRCUMFLEX ARTERY: Angiographically normal RAMUS: Angiographically normal RIGHT CORONARY ARTERY: Angiographically normal VALVE FINDINGS: Mitral vlave regurg of 1+ based upon echo COMPLICATIONS No Complications PROCEDURE MEDICATIONS Versed 1 mg IV Fentanyl 50 mcg IV Versed 1 mg IV Oxygen: 2 L/min via nasal cannula Heparin given IA 03/18/2021 08:47:05 Verapamil 2.5mg, Ntg 100mcgs, 2000 units of Heparin given IA 03/18/2021 08:47:05 SUMMARY OF HEMODYNAMIC DATA Time AIR REST ECG 08:25:12 AO 132/106 (118) SA 08:50:07 LV 132/14, 19 08:57:09 LV 138/13, 20 08:57:16 LV 141/17, 20 08:57:59 LV 141/17, 24 08:58:05 LVp 146/19, 23 08:58:08 AOp 148/106 (127) 08:58:13 Signed By Shiv Rodriges MD On 03/24/2021 2:37:41 PM Shiv Rodriges MD
== END 2021-03-18 10:59 | disposition home or self-care (01) ==
LOC: ED 14:34 → PCU 15:39
PROVIDERS: Admitting Provider Internal Medicine; Emergency Provider Emergency Medicine; PCP Family Medicine; Visit Provider Internal Medicine
DX: R07.89 Other chest pain (principal); M79.89 Other specified soft tissue disorders; I10 Essential (primary) hypertension; K21.9 Gastro-esophageal reflux disease without esophagitis; F41.8 Other specified anxiety disorders; F17.210 Nicotine dependence, cigarettes, uncomplicated; E66.01 Morbid (severe) obesity due to excess calories; Z68.41 Body mass index [BMI] 40.0-44.9, adult; G47.33 Obstructive sleep apnea (adult) (pediatric); Z79.899 Other long term (current) drug therapy
CPT/HCPCS: 36415; 71260; 80048; 80053; 83735; 84484; 85025; 87635; 93005; 93306; 93458; 93971; 96372; 96374; 96375; 99152; 99153; 99218; 99285; 99406; Q9957; Q9967; U0005; A4216; C1769; C1894; C8929; G0378; J2405; J3490; U0003

== ENCOUNTER → 2021-05-13 09:42 | Outpatient (CLI) | payer OTHER, SELFPAY ==
[2021-05-13 10:34] LABS: Absolute Lymphocyte Count 1.21 X10^3/uL (0.83-4.51); Absolute Neutrophil Count 6.2 X10^3/uL (2.0-7.7); Basophil# 0.08 X10^3/uL; Basophil% 0.9 % (0-1); Eosinophil# 0.28 X10^3/uL; Eosinophils% 3.3 % (0-5); Hematocrit 46.5 % (40-54); Hemoglobin 16.3 g/dL (13.0-16.5); Lymphocyte # 1.21 X10^3/ul (0.83-4.51); Lymphocyte % 14.1 % (19-41); Mean Corp Hgb Conc 35.1 g/dL (32-36); Mean Corpuscular Hgb 35.4 pg (27.0-32.0); Mean Corpuscular Volume 101.1 fL (80-94); Mean Platelet Vol. 10.1 fl (6.2-12.0); Monocyte% 8.1 % (0-10); NRBC Flagged by Analyzer 0 % (0-5); Neutrophil # 6.18 X10^3/uL (2.7-7.7); Platelet Count 279 K/mm3 (150-450); RBC Distribution Width CV 12.7 % (11.6-14.6); RBC Distribution Width SD 47.3 fl (35.1-43.9); White Blood Count 8.6 K/mm3 (4.4-11.0)
[2021-05-13 11:14] LABS: Anion Gap 10 (5-15); BUN 6 mg/dL (7-18); BUN/Creat Ratio 7.1 RATIO (10-20); Calcium,Total 8.4 mg/dL (8.5-10.1); Chloride 105 mmol/L (98-107); Creatinine, Serum 0.84 mg/dL (0.70-1.30); EST Glomerular Filtration Rate 110 mL/min (>60); Est Glom Filt Rate - Afr Amer 133 mL/min (>60); Glucose 152 mg/dL (74-106); Potassium 3.4 mmol/L (3.5-5.1); Sodium Level 137 mmol/L (136-145)
== END ==
PROVIDERS: PCP Family Medicine; Referring Provider Physician Assistant Surgical; Visit Provider Physician Assistant Surgical
DX: Z01.818 Encounter for other preprocedural examination (principal); Z01.810 Encounter for preprocedural cardiovascular examination
CPT/HCPCS: 36415; 80048; 85025

== ENCOUNTER 2022-07-19 11:44 | Inpatient (IN) | payer OTHER, SELFPAY ==
[2022-07-19 11:46] VITALS: BP 149/118; PULSE 106; RESP 17; TEMP 36.6; O2SAT 95; BMI 40.9
--- NOTE | 2022-07-19 12:20 | EX.ED.SAOD ---
HPI History of Present Illness Chief Complaint: Substance Abuse Detail of Chief Complaint: Alcohol abuse for 20 years. No prior detox. Informant: patient Onset/Context/Timing Onset: - (Years.) Timing: Continuous Current Severity: Mild Maximum Severity: Mild Associated Symptoms Associated Symptoms: Negative for vomiting* or diarrhea* Narrative Narrative: 36-year-old male past medical history of hypertension. Has had a 20-year history of alcohol abuse drinks about 1/5 of alcohol a day. He has never undergone detox. Currently he is going through a divorce and says he wants to get things back in order. Denies any recent illness. Last drink was yesterday around 5 PM. Prior similar symptoms: Yes Recent Illness/Hospitalization: No PFSH PFSH Medical History Alcohol abuse Anxiety BiPAP (biphasic positive airway pressure) dependence Depression GERD (gastroesophageal reflux disease) Hypertension Kidney stones Migraines Obesity, Class III, BMI 40-49.9 (morbid obesity) Sleep apnea Smoker Home Medications atorvastatin 10 mg tablet 10 mg PO QHS #30 tabs 02/20/21 [Rx Last Taken 03/16/21] sertraline 50 mg tablet 50 mg PO DAILY #30 tabs 02/20/21 [Rx Last Taken 03/17/21] naproxen 500 mg tablet 500 mg PO BID PRN PRN Pain 03/17/21 [History Last Taken 03/17/21] hydrochlorothiazide 25 mg tablet 25 mg PO DAILY #90 tabs 03/18/21 [Rx Last Taken Unknown] Allergy/AdvReac Type Severity Reaction Status Date / Time No Known Allergies Allergy Verified 07/19/22 11:45 Family History Father Cancer from colorectal cancer x6 years ago. Mother Hypertension Surgical History History of left heart catheterization (03/18/21) S/P hernia surgery S/P tonsillectomy Social History household members: significant other, family and children housing: house number of children: 3 Smoking Status: Former smoker alcohol intake: current alcohol intake frequency: a few times a week Alcohol type: beer details: 5-9 craft beers socially. ROS ROS ED ROS Narrative Denies. Review of Systems ROS Unobtainable: Denies due to encephalopathy Constitutional Constitutional ED: Denies chills or fever(s) Eyes Eyes: Denies blurry vision ENT ENT ED: Denies ear pain Cardiovascular Cardiovascular: Denies chest pain Respiratory/Chest Respiratory/Chest: Denies cough Gastrointestinal Gastrointestinal: Denies abdominal pain Genitourinary Genitourinary ED: Denies dysuria Musculoskeletal Musculoskeletal: Denies arthralgias Integumentary Denies abscess Neurologic Neurologic: Denies headache(s) Psychiatric Psychiatric: Denies anxiety Endocrine Endocrinology: Denies cold intolerance Hematologic/Lymphatic Hematologic/Lymphatic: Denies easy bleeding Allergic/Immunologic Allergic/Immunologic ED: Denies mouth swelling or tongue swelling EXAM Physical Exam Narrative Exam Narrative: 36-year-old male no acute distress. Vital signs stable afebrile. Other than his blood pressure 149/118. H EENT exam unremarkable. Neck nontender. No JVD. No lymphadenopathy. Lungs clear to auscultation bilaterally. Heart regular rhythm rate about 100 no murmur. Abdomen soft nontender normal bowel sounds no peritoneal signs. Moving all 4 extremities. Nontender no edema. Back nontender. Neurologically is awake and alert with no focal motor deficits. Benign exam. Const Vital Signs: 07/19/22 11:46 Temperature 97.9 F Temperature Source Temporal Pulse Rate 106 H Respiratory Rate 17 Blood Pressure 149/118 H Blood Pressure Mean 128 Pulse Ox 95 Oxygen Delivery Method Room Air Positive well nourished, well developed and obese; Negative for cachectic, contractures or unkempt General Appearance ED: well developed and NAD; Negative for unkempt, cachectic, contractures or pallor Nutritional Appearance: obese; Negative for cachectic HEENT Reports moist mucous membranes; Denies dry mucous membranes atraumatic; Negative for trauma or tenderness Mouth ED: No dry mucous membranes Mouth: No dry mucous membranes Eyes PERRL and EOMs intact bilaterally General Eye ED: Negative for pale conjunctiva or scleral icterus Neck no lymphadenopathy, supple and no JVD Chest Wall inspection of chest normal and palpation of chest normal Resp normal respiratory effort and clear to auscultation bilaterally Effort and Inspection: Negative for retractions Auscultation: Negative for rales, rhonchi or wheezes Cardio regular rate, regular rhythm, S1 normal heart sound, S2 normal heart sound and no murmurs Rate: Negative for bradycardia Rhythm: Negative for abnormal rhythm GI soft to palpation, non-tender, non-distended and no masses Inspection: Negative for abdominal distention Auscultation: Negative for hyperactive bowel sounds Palpation: Negative for tender or guarding Back/Spine no CVA tenderness General Back: Negative for CVA tenderness Cervical Spine: Negative for cervical spine tenderness Thoracic Spine / Upper Back: Negative for thoracic spinal tenderness Lumbar Spine / Lower Back: Negative for lumbar spinal tenderness Coccyx: Negative for swelling Extremity General Extremety ED: Negative for edema or tenderness General Extremity: Negative for edema Neuro oriented x3 and CN's II-XII intact bilaterally Sensorium / Orientation: alert, oriented to person, oriented to place and oriented to time; Negative for confused, lethargic or stuporous Speech: speech normal Motor Exam: strength 5/5 throughout Psych mental status grossly normal and thought process normal Appearance: Negative for unkempt Attitude: No belligerent, No agitated and No aggressive Mood & Affect: Negative for depressed or anxious Skin General Skin Exam: Negative for jaundice or pallor Lesions: no lesions Rashes: no rashes Trauma: Negative for abrasion or laceration MDM MDM MDM Narrative Medical decision making narrative: 36-year-old male requesting detox for alcohol abuse. Screening labs are being obtained. I spoke to the hospitalist about admission. Lab Data Attestation: I reviewed the patient's lab results. Lab results narrative: CBC shows white count 7.8. H&H 18.9 and 52. Platelets 281. Labs: Laboratory Results - last 24 hr 07/19/22 07/19/22 12:15 12:15 WBC 7.8 RBC 5.36 Hgb 18.9 H* Hct 52.4 MCV 97.8 H MCH 35.3 H MCHC 36.1 H RDW Std Deviation 46.4 H RDW Coeff of Linsey 12.9 Plt Count 281 MPV 9.4 Immature Gran % (Auto) 1.100 H Neut % (Auto) 69.1 Lymph % (Auto) 14.3 L Dent % (Auto) 9.7 Eos % (Auto) 4.8 Baso % (Auto) 1.0 Absolute Neuts (auto) 5.4 Absolute Lymphs (auto) 1.12 Nucleated RBC % 0 Diff Path Review May foll Ur Drug Screen Comment Discharge Plan Dx/Rx/DC Orders Clinical Impression: Alcohol abuse, Hypertension, Desire for detoxification Disposition Disposition: Acute Care Hospital [facility] [place] [facility]
[2022-07-19 12:34] LABS: Absolute Lymphocyte Count 1.12 X10^3/uL (0.83-4.51); Absolute Neutrophil Count 5.4 X10^3/uL (2.0-7.7); Basophil# 0.08 X10^3/uL; Eosinophil# 0.38 X10^3/uL; Eosinophils% 4.8 % (0-5); Hematocrit 52.4 % (40-54); Lymphocyte # 1.12 X10^3/ul (0.83-4.51); Lymphocyte % 14.3 % (19-41); Mean Corp Hgb Conc 36.1 g/dL (32-36); Mean Corpuscular Hgb 35.3 pg (27.0-32.0); Mean Corpuscular Volume 97.8 fL (80-94); Mean Platelet Vol. 9.4 fl (6.2-12.0); Monocyte# 0.76 X10^3/uL; Monocyte% 9.7 % (0-10); NRBC Flagged by Analyzer 0 % (0-5); Neutrophil # 5.41 X10^3/uL (2.7-7.7); Neutrophil % 69.1 % (47-70); Platelet Count 281 K/mm3 (150-450); RBC Distribution Width CV 12.9 % (11.6-14.6); RBC Distribution Width SD 46.4 fl (35.1-43.9); Red Blood Count 5.36 M/mm3 (4.6-6.2); White Blood Count 7.8 K/mm3 (4.4-11.0)
[2022-07-19 12:40] LABS: Hemoglobin 18.9 g/dL (13.0-16.5)
[2022-07-19 12:55] LABS: Alcohol, Blood (Medical)-Serum < 3.0 mg/dL
[2022-07-19 12:56] LABS: Amphetamine Urine VISTA NEGATIVE (<1000 ng/mL); Barbiturate Urine VISTA NEGATIVE (< 200 ng/mL); Benzodiazepine Urine VISTA NEGATIVE (< 200 ng/mL); Cocaine Urine VISTA NEGATIVE (< 300 ng/mL); Ecstacy Urine VISTA NEGATIVE (< 500 ng/mL); Methadone Urine VISTA NEGATIVE (< 300 ng/mL); PCP Urine VISTA NEGATIVE (< 25 ng/mL); THC Urine VISTA POSITIVE (< 50 ng/mL); Vista UDS pH Range 6
[2022-07-19 12:59] LABS: ALB/GLOB Ratio 0.8 RATIO (0.9-2.4); AST(SGOT) 85 U/L (15-37); Alanine Aminotransfer ALT/SGPT 75 U/L (16-61); Albumin, Serum 3.4 g/dL (3.2-5.0); Alkaline Phosphatase 69 U/L (45-117); Anion Gap 7 (5-15); BUN 8 mg/dL (7-18); BUN/Creat Ratio 7.7 RATIO (10-20); Calcium,Total 9.1 mg/dL (8.5-10.1); Chloride 106 mmol/L (98-107); Creatinine, Serum 1.04 mg/dL (0.70-1.30); EST Glomerular Filtration Rate 85 mL/min (>60); Est Glom Filt Rate - Afr Amer 103 mL/min (>60); Estimated Creatinine Clearance 116.23 ml/min; Globulin 4.5 g/dL (2.2-4.2); Glucose 121 mg/dL (74-106); Potassium 3.8 mmol/L (3.5-5.1); Protein, Total 7.9 g/dL (6.4-8.2); Sodium Level 138 mmol/L (136-145)
--- NOTE | 2022-07-19 12:59 | HP.PCM.HOS_ITS ---
[facility] - General General Date of Service: 07/19/22 Chief Complaint: Request for alcohol withdrawal treatment HPI Narrative SABRINA BRUMFIELD, is a 36 M who presents seeking treatment for alcohol withdrawal. Patient drinks fifth of vodka or some other liquor daily. Last drink was today. Patient has quit on his own at home and would develop some tremors and those would resolve but then he would resume drinking again. He was then asked several times. Currently, he is not experiencing any tremors, hallucinations or any other symptoms at this time. Patient had done some Internet research but has not spoken to anyone specifically about treatment programs upon discharge. Patient said that he is motivated and excited to begin this next phase of his life. [facility] Medical History Alcohol abuse Anxiety BiPAP (biphasic positive airway pressure) dependence Depression GERD (gastroesophageal reflux disease) Hypertension Kidney stones Migraines Obesity, Class III, BMI 40-49.9 (morbid obesity) Sleep apnea Smoker Home Medications atorvastatin 10 mg tablet 10 mg PO QHS #30 tabs 02/20/21 [Rx Last Taken 03/16/21] sertraline 50 mg tablet 50 mg PO DAILY #30 tabs 02/20/21 [Rx Last Taken 03/17/21] naproxen 500 mg tablet 500 mg PO BID PRN PRN Pain 03/17/21 [History Last Taken 03/17/21] hydrochlorothiazide 25 mg tablet 25 mg PO DAILY #90 tabs 03/18/21 [Rx Last Taken Unknown] Allergy/AdvReac Type Severity Reaction Status Date / Time No Known Allergies Allergy Verified 07/19/22 11:45 Family History Father Cancer from colorectal cancer x6 years ago. Mother Hypertension Surgical History History of left heart catheterization (03/18/21) S/P hernia surgery S/P tonsillectomy Social History household members: significant other, family and children housing: house number of children: 3 Smoking Status: Former smoker alcohol intake: current alcohol intake frequency: a few times a week Alcohol type: beer details: 5-9 craft beers socially. ROS MARLIN Ballesteros Occasionally gets swelling in his ankles after heavy drinking. All review of systems were negative except as mentioned above in the history of present illness and the other review of systems. Vital Signs Vital Signs Vital Signs: 07/19/22 11:46 Temperature 36.6 C Temperature Source Temporal Pulse Rate 106 H Respiratory Rate 17 Blood Pressure 149/118 H Blood Pressure Mean 128 Pulse Ox 95 Oxygen Delivery Method Room Air Weight Weight: 148.733 kg Body Mass Index (BMI) 40.9 Physical Exam Const alert and no apparent distress Resp normal respiratory effort, no retractions, no use of accessory muscles and clear to auscultation bilaterally Cardio regular rate, regular rhythm, S1 normal heart sound and S2 normal heart sound GI normal to inspection, nondistended, normoactive bowel sounds, soft to palpation, non-tender and non-distended Extremity normal to inspection Results Lab / Micro Data Attestation: I reviewed the patient's lab results. Result Diagrams: 07/19/22 12:15 07/19/22 12:15 Labs: Laboratory Results - last 24 hr 07/19/22 12:15: WBC 7.8, RBC 5.36, Hgb 18.9 H*, Hct 52.4, MCV 97.8 H, MCH 35.3 H , MCHC 36.1 H, RDW Std Deviation 46.4 H, RDW Coeff of Linsey 12.9, Plt Count 281, MPV 9.4, Immature Gran % (Auto) 1.100 H, Neut % (Auto) 69.1, Lymph % (Auto) 14.3 L, [place] % (Auto) 9.7, Eos % (Auto) 4.8, Baso % (Auto) 1.0, Absolute Neuts (auto) 5.4, Absolute Lymphs (auto) 1.12, Nucleated RBC % 0, Diff Path Review December07/19/22 12:15: Ethyl Alcohol < 3.0 07/19/22 12:15: Urine Opiates Screen NEGATIVE, Urine Methadone Screen NEGATIVE, Ur Barbiturates Screen NEGATIVE, Ur Phencyclidine Scrn NEGATIVE, Ur Amphetamines Screen NEGATIVE, MDMA (Ecstasy) Screen NEGATIVE, U Benzodiazepines Scrn NEGATIVE, Urine Cocaine Screen NEGATIVE, U Cannabinoids Screen POSITIVE H, Ur Drug Screen Comment Assessment & Plan Assessment/Plan (1) Desire for detoxification: PLAN: Last drink was today. Patient literally has his bags packed for his stay here. He appears motivated to start treatment Phenobarbital taper Additional medication to help with somatic plaints of his withdrawal (2) Polycythemia: PLAN: Hemoglobin 18.8. Review of prior records show that his hemoglobin in April 2021 was 16.3. Much higher now. Patient does not appear to be dehydrated. Patient states that he smokes sporadically and is not a chronic smoker Repeat CBC in the morning PLAN: Plan Chronic conditions * Hypertension: Continue with hydrochlorothiazide * Hyperlipidemia: Continue with atorvastatin * Depression: Continue with sertraline VTE prophylaxis: Low risk. Charges/Coding Visit Charges Inpatient E&M: 89434 Init Hosp L2
[2022-07-19 13:04] VITALS: BP 149/118; PULSE 106; RESP 17; TEMP 36.6; O2SAT 95
[2022-07-19 13:53] VITALS: BMI 40.6
[2022-07-19 14:10] VITALS: BP 153/113; PULSE 102; RESP 16; TEMP 36.9; O2SAT 97
[2022-07-19 14:11] VITALS: BP 153/113; PULSE 102; RESP 16; TEMP 36.9; O2SAT 97
[2022-07-19] MEDS: Phenobarbital 32.4 MG Tablet 64.8 MG PO ×3 (14:30→21:44)
[2022-07-19] MEDS: hydrOXYzine PAM 25 MG Capsule 50 MG PO ×2 (18:02→22:32)
[2022-07-19 18:10] VITALS: BP 159/111; PULSE 90; RESP 16; TEMP 36.8; O2SAT 98
[2022-07-19] MEDS: Gabapentin 300 MG Capsule PO (21:44)
[2022-07-19] MEDS: Atorvastatin Calcium 10 MG Tablet PO (21:44)
[2022-07-19 21:48] VITALS: BP 160/102; PULSE 88; RESP 16; TEMP 37; O2SAT 95
[2022-07-20 01:46] VITALS: BP 152/97; PULSE 92; RESP 18; TEMP 36.6; O2SAT 93
[2022-07-20] MEDS: Phenobarbital 32.4 MG Tablet 64.8 MG PO ×6 (01:49→21:50)
[2022-07-20 06:01] LABS: Absolute Lymphocyte Count 1.13 X10^3/uL (0.83-4.51); Basophil# 0.08 X10^3/uL; Basophil% 1.1 % (0-1); Eosinophil# 0.28 X10^3/uL; Eosinophils% 3.9 % (0-5); Hematocrit 49.5 % (40-54); Hemoglobin 17.2 g/dL (13.0-16.5); Lymphocyte # 1.13 X10^3/ul (0.83-4.51); Lymphocyte % 15.6 % (19-41); Mean Corp Hgb Conc 34.7 g/dL (32-36); Mean Corpuscular Hgb 34.3 pg (27.0-32.0); Mean Corpuscular Volume 98.6 fL (80-94); Mean Platelet Vol. 9.9 fl (6.2-12.0); Monocyte# 0.66 X10^3/uL; Monocyte% 9.1 % (0-10); NRBC Flagged by Analyzer 0 % (0-5); Neutrophil # 5.01 X10^3/uL (2.7-7.7); Neutrophil % 69.1 % (47-70); Platelet Count 247 K/mm3 (150-450); RBC Distribution Width SD 47.3 fl (35.1-43.9); Red Blood Count 5.02 M/mm3 (4.6-6.2); White Blood Count 7.3 K/mm3 (4.4-11.0)
[2022-07-20 06:15] VITALS: BP 161/112; PULSE 87; RESP 18; TEMP 36.5; O2SAT 95
[2022-07-20] MEDS: hydrOXYzine PAM 25 MG Capsule 50 MG PO ×4 (06:19→20:39)
[2022-07-20 08:10] VITALS: BP 148/100; PULSE 79; RESP 18; TEMP 35.7; O2SAT 94
[2022-07-20] MEDS: Sertraline 50 MG Tablet PO (08:12)
[2022-07-20] MEDS: Thiamine Hydrochloride 100 MG Tablet PO (08:12)
[2022-07-20] MEDS: hydroCHLOROthiazide 25 MG Tablet PO (08:12)
[2022-07-20] MEDS: Folic Acid 1 MG Tablet PO (08:12)
[2022-07-20 13:03] LABS: Pathologist Review Reviewed
--- NOTE | 2022-07-20 14:02 | ADDICTION ---
Addendum entered by Nikkie Metz 07/20/22 15:25: Pt will go to [facility] treatment center upon discharge. He reports that he will drive himself. He will need to take an H&P with him to give to [facility]. Original Note: This filing writer met with PT to conduct ASAM, MSE, AUDIT, DUDIT assessments and to plan for d/c. PT A+Ox4 and participated actively. All assessments completed and placed in PT's chart. PT plans to f/u with residential treatment services. This worker will work on placement and will make a note once found. PT did not indicate a need for transportation post d/c from [facility].
[2022-07-20 15:10] VITALS: BP 155/107; PULSE 89; RESP 18; TEMP 36.3; O2SAT 94
[2022-07-20] MEDS: FLU VACC QS2022-23(6MOS UP)/PF 60 MCG/0.5 ML SYRINGE IM (15:53)
--- NOTE | 2022-07-20 19:01 | PN.HOSP_ITS ---
Subjective Subjective Patient was seen and examined today, he states he feels a little bit nervous but is otherwise doing well. Objective Data Objective Data Vital Signs: Vital Signs Temp Pulse Resp BP Pulse Ox O2 Del Method 97.4 F L 89 18 155/107 H 94 Room Air 07/20/22 15:10 07/20/22 15:10 07/20/22 15:10 07/20/22 15:10 07/20/22 15:10 07/20/22 15:10 Oxygen Delivery Method Room Air Weight: 147.418 kg Body Mass Index (BMI) 40.6 Intake & Output: Intake and Output for Last 24 Hours 07/18/22 07/19/22 07/20/22 23:59 23:59 23:59 Intake Total 250 / 250 Balance 250 / 250 Lab / Micro Data Result Diagrams: 07/20/22 04:44 07/19/22 12:15 Labs: Laboratory Results - last 24 hr 07/19/22 12:15: Diff Path Review Reviewed 07/20/22 04:44: WBC 7.3, RBC 5.02, Hgb 17.2 H, Hct 49.5, MCV 98.6 H, MCH 34.3 H, MCHC 34.7, RDW Std Deviation 47.3 H, RDW Coeff of Linsey 13.0, Plt Count 247, MPV 9.9, Immature Gran % (Auto) 1.200 H, Neut % (Auto) 69.1, Lymph % (Auto) 15.6 L, [place] % (Auto) 9.1, Eos % (Auto) 3.9, Baso % (Auto) 1.1 H, Absolute Neuts (auto) 5.0, Absolute Lymphs (auto) 1.13, Nucleated RBC % 0 Physical Exam Const alert, oriented x3, no apparent distress, average body habitus and healthy appearing General Appearance: cooperative, well kempt and well developed Orientation / Consciousness: awake, oriented to person, oriented to place and oriented to time HEENT normocephalic and moist oral mucous membranes Eyes PERRL, EOMs intact bilaterally and conjunctivae normal Neck supple, no JVD, thyroid normal and no carotid bruits General: trachea midline Resp normal respiratory effort, no retractions, no use of accessory muscles and clear to auscultation bilaterally Auscultation: Negative for rales, rhonchi or wheezes Cardio regular rate, regular rhythm, S1 normal heart sound, S2 normal heart sound, no murmurs, no rub and no gallops GI normal to inspection, nondistended, normoactive bowel sounds, soft to palpation, non-tender and non-distended Extremity no clubbing, cyanosis or edema Skin no rashes or lesions noted General Skin Exam: no breakdown Neuro oriented x3, CN's II-XII intact bilaterally, moves all extremities, no focal motor deficits and no sensory deficits noted Sensorium / Orientation: awake, alert, oriented to person, oriented to place and oriented to time Speech: speech normal Psych affect normal Assessment & Plan Assessment/Plan (1) Desire for detoxification: PLAN: Plan 1. Acute alcohol withdrawal-continue present medications, patient appears medically stable at this time, he was seen by addiction licensed master social worker today #2 chronic alcoholism-complicates care, management, course, and recovery #3 essential hypertension-patient will remain on his present medication #4 hyperlipidemia-patient is on atorvastatin #5 chronic depression-patient is on Zoloft Charges/Coding Visit Charges Inpatient E&M: 47745 Subs Hosp L2
[2022-07-20 20:25] VITALS: BP 154/120; PULSE 95; RESP 18; TEMP 36.8; O2SAT 94
[2022-07-20] MEDS: Atorvastatin Calcium 10 MG Tablet PO (21:50)
[2022-07-21 02:47] VITALS: BP 140/87; PULSE 95; RESP 18; TEMP 36.9; O2SAT 97
[2022-07-21] MEDS: hydrOXYzine PAM 25 MG Capsule 50 MG PO ×2 (02:53→07:46)
[2022-07-21] MEDS: Phenobarbital 32.4 MG Tablet 64.8 MG PO ×6 (02:53→21:34)
[2022-07-21] MEDS: Sertraline 50 MG Tablet PO (07:43)
[2022-07-21] MEDS: hydroCHLOROthiazide 25 MG Tablet PO (07:43)
[2022-07-21] MEDS: Folic Acid 1 MG Tablet PO (07:43)
[2022-07-21] MEDS: Thiamine Hydrochloride 100 MG Tablet PO (07:46)
[2022-07-21 08:18] VITALS: BP 162/99; PULSE 96; RESP 16; TEMP 36.4; O2SAT 95
[2022-07-21] MEDS: Gabapentin 300 MG Capsule PO ×2 (11:47→21:34)
[2022-07-21 11:50] VITALS: BP 158/115; PULSE 97; RESP 16; TEMP 36.8; O2SAT 95
--- NOTE | 2022-07-21 13:40 | PCM.PN.HOSP ---
Subjective Subjective Patient was seen and examined today, according to addiction social service coordinator, patient wants to do an inpatient detox program. Patient is having minimal withdrawal symptoms at this time, he is complaining of some nervousness but overall is doing well. Objective Data Objective Data Vital Signs: Vital Signs Temp Pulse Resp BP Pulse Ox O2 Del Method 98.3 F 97 16 158/115 H 95 Room Air 07/21/22 11:50 07/21/22 11:50 07/21/22 11:50 07/21/22 11:50 07/21/22 11:50 07/21/22 11:50 Oxygen Delivery Method Room Air Weight: 147.4 kg Body Mass Index (BMI) 40.6 Intake & Output: Intake and Output for Last 24 Hours 07/19/22 07/20/22 07/21/22 23:59 23:59 23:59 Intake Total 250 / 250 1400 / 1400 Balance 250 / 250 1400 / 1400 Lab / Micro Data Result Diagrams: 07/20/22 04:44 07/19/22 12:15 Physical Exam Const alert, oriented x3, no apparent distress, average body habitus and healthy appearing General Appearance: cooperative, well kempt and well developed Orientation / Consciousness: awake, oriented to person, oriented to place and oriented to time HEENT normocephalic and moist oral mucous membranes Eyes PERRL, EOMs intact bilaterally and conjunctivae normal Neck supple, no JVD, thyroid normal and no carotid bruits General: trachea midline Resp normal respiratory effort, no retractions, no use of accessory muscles and clear to auscultation bilaterally Auscultation: Negative for rales, rhonchi or wheezes Cardio regular rate, regular rhythm, S1 normal heart sound, S2 normal heart sound, no murmurs, no rub and no gallops GI normal to inspection, nondistended, normoactive bowel sounds, soft to palpation, non-tender and non-distended Extremity no clubbing, cyanosis or edema Skin no rashes or lesions noted General Skin Exam: no breakdown Neuro oriented x3, CN's II-XII intact bilaterally, no focal motor deficits and no sensory deficits noted Sensorium / Orientation: awake and alert Speech: speech normal Psych affect normal Assessment & Plan Assessment/Plan (1) Desire for detoxification: PLAN: Plan 1. Acute alcohol withdrawal-continue present medications, patient appears medically stable at this time, I will reevaluate the patient tomorrow for possible discharge #2 chronic alcoholism-complicates care, management, course, and recovery #3 essential hypertension-patient will remain on his present medication #4 hyperlipidemia-patient is on atorvastatin #5 chronic depression-patient is on Zoloft Charges/Coding Visit Charges Inpatient E&M: 72972 Subs Hosp L2
--- NOTE | 2022-07-21 14:57 | CHAPLAIN ---
Type of Pastoral Visit _x__ Initial Visit ___ Follow-up Visit ___ On-call Visit ___ General Patient Visit ___ Spiritual Assessment ___ Family Conference ___ Bereavement ___ Rapid Response ___ Code Blue ___ Other (describe below) Pastoral Care Referral From _x__ Patient ___ Family ___ Nurse ___ Physician ___ Client Technologies Analyst ___ Contracting Analyst ___ Other (describe below) Sacrament/Intervention _x__ Active listening ___ Anointing ___ Presybeterian ___ Bereavement ___ Communion _x__ Meka exploration ___ _x__ Life review _x__ Prayer ___ Reconciliation ___ Sacrament of Sick __x_ Supportive presence ___ Wedding ___ Other (describe below) Pastoral Comments patient willing to talk about his life; pt is seeking help with detox for the first time; pt has not had previous interventions with alcohol abuse but stated that he came in of his own decision and will; pt has family support per his report and that my Mom is super alevism and is very helpful; pt motivated to get sober due to three young children that I am fighting for; pt is in divorce proceedings; pt welcomes prayer and states I quit going to druze and that is part of my problem; pt follow up would be appreciated
[2022-07-21 15:17] VITALS: BP 147/97; PULSE 106; RESP 16; TEMP 36.9; O2SAT 93
[2022-07-21 20:33] VITALS: BP 140/111; PULSE 114; RESP 16; TEMP 36.9; O2SAT 93
[2022-07-21] MEDS: Atorvastatin Calcium 10 MG Tablet PO (21:35)
[2022-07-22 03:56] VITALS: BP 156/109; PULSE 117; RESP 16; TEMP 36.3
[2022-07-22] MEDS: Phenobarbital 32.4 MG Tablet 64.8 MG PO ×2 (04:02→10:20)
[2022-07-22] MEDS: hydrOXYzine PAM 25 MG Capsule 50 MG PO ×2 (04:02→10:23)
[2022-07-22] MEDS: Gabapentin 300 MG Capsule PO (05:44)
[2022-07-22 07:29] VITALS: BP 143/84; PULSE 104; RESP 16; TEMP 36.3; O2SAT 92
[2022-07-22] MEDS: Thiamine Hydrochloride 100 MG Tablet PO (08:27)
[2022-07-22] MEDS: Sertraline 50 MG Tablet PO (08:27)
[2022-07-22] MEDS: Folic Acid 1 MG Tablet PO (08:27)
[2022-07-22] MEDS: hydroCHLOROthiazide 25 MG Tablet PO (08:27)
[2022-07-22 10:35] VITALS: BP 159/97; PULSE 107; RESP 16; TEMP 36.5; O2SAT 92
--- NOTE | 2022-07-22 11:29 | DCINST_ITS ---
Discharge Instructions Diet Discharge Diet: No restrictions Activity Discharge Activity: Return to Normal Activity Weight Bearing Status: Full weight bearing Follow Up Care Test Results: Test results from this visit will be discussed in further detail at your follow- up appointment, if applicable. Discharge Plan Admission Admit Date/Time: 07/19/22 12:57 Primary Reason for Your Visit: alcohol detox Attending Provider: Guanaco Laguerre Primary Care Provider: Sho Chand NP Consulting Providers: Donald Mancia Discharge Orders/Prescriptions Prescriptions: Continued sertraline 50 mg Tablet 50 mg PO DAILY Qty: 30 0RF atorvastatin 10 mg tablet 10 mg PO QHS Qty: 30 0RF naproxen 500 mg tablet 500 mg PO BID PRN PRN (Reason: Pain) hydrochlorothiazide 25 mg Tablet 25 mg PO DAILY Qty: 90 0RF Referrals / Follow Up: Sho Chand NP, SENIOR ENERGY ANALYST-C [Primary Care Provider] - Disposition Disposition (needs filled in before D/C Order can be placed): DC/Tx to Another Type of HCF
--- NOTE | 2022-07-23 08:45 | DS.PCM_ITS ---
Providers Date of Admission: 07/19/22 Date of Discharge: 07/22/22 Primary Care Physician: KAYLIE Bañuelos Reason For Visit: ALCOHOL WD Diagnosis Discharge Diagnosis (1) Desire for detoxification: Status: Acute Plan 1. Acute alcohol withdrawal-continue present medications, patient appears medically stable at this time, I will reevaluate the patient tomorrow for possible discharge #2 chronic alcoholism-complicates care, management, course, and recovery #3 essential hypertension-patient will remain on his present medication #4 hyperlipidemia-patient is on atorvastatin #5 chronic depression-patient is on Zoloft Medications at Discharge Home Medications atorvastatin 10 mg tablet 10 mg PO QHS #30 tabs 02/20/21 sertraline 50 mg tablet 50 mg PO DAILY #30 tabs 02/20/21 naproxen 500 mg tablet 500 mg PO BID PRN PRN Pain 03/17/21 hydrochlorothiazide 25 mg tablet 25 mg PO DAILY #90 tabs 03/18/21 Hospital Course Operations None Procedures None Summary of Care Provided Minutes Spent on Discharge: 31 Hospital Course: This 36-year-old white male was seen in the emergency room at [facility] requesting services for alcohol detox. Labs were obtained in the emergency room, CBC was remarkable for hemoglobin of 18.9, chemistry profile was remarkable for an AST of 85 and an ALT of 75, patient's talk screen was positive for cannabinoids. Patient was admitted to [place] [address] using the order set for alcohol detox, he was seen in consultation by addiction high school social studies tutor, he agreed to an inpatient detox center transfer after he was discharged in the hospital. On 07/22/2022, patient was seen and examined: On examination he appeared in good health and spirits. Vital signs as documented. Skin warm and dry and without overt rashes. Neck without JVD, neck was supple, trachea midline, thyroid was normal. Lungs clear bilaterally, normal air movement was noted. Heart exam notable for regular rhythm, normal sounds and absence of murmurs, rubs or gallops. Abdomen unremarkable and without evidence of organomegaly, masses, or abdominal aortic enlargement. Bowel sounds are present, abdomen is not distended. Extremities nonedematous, no cyanosis was noted, no clubbing was noted. Neuro: Cranial nerves II through XII are grossly intact, no focal motor deficits were noted, sensation to light touch and pinprick intact, motor exam 5/5 throughout. Psych: Patient is alert and oriented x3, he does not appear anxious or depressed, he does not appear agitated. Patient appears stable for discharge on 07/22/2022, he was picked up and taken to an alcohol detox center per arrangements with addiction high school social studies tutor. Weight / BMI Weight Weight: 147.4 kg Body Mass Index (BMI) 40.6 ABG / Lab / Microbiology Data Result Diagrams: 07/20/22 04:44 07/19/22 12:15 D/C Instructions Discharge Diet: No restrictions Weight Bearing Status: Full weight bearing Meaningful Use Info Meaningful Use Diagnoses (Choose all that apply): None applicable Discharge Plan Admission Admit Date/Time: 07/19/22 12:57 Primary Reason for Your Visit: alcohol detox Attending Provider: Guanaco Laguerre Primary Care Provider: Sho Chand NP Consulting Providers: Donald Mancia Discharge Orders/Prescriptions Prescriptions: Continued sertraline 50 mg Tablet 50 mg PO DAILY Qty: 30 0RF atorvastatin 10 mg tablet 10 mg PO QHS Qty: 30 0RF naproxen 500 mg tablet 500 mg PO BID PRN PRN (Reason: Pain) hydrochlorothiazide 25 mg Tablet 25 mg PO DAILY Qty: 90 0RF Referrals / Follow Up: Sho Chand NP, ELECTRONIC COMMERCE SPECIALIST-C [Primary Care Provider] - Disposition Disposition (needs filled in before D/C Order can be placed): DC/Tx to Another Type of HCF Charges/Coding Visit Charges Inpatient E&M: 57463 Disch Hosp
== END 2022-07-22 14:11 | disposition other institution (70) | DRG 897 ==
LOC: ED 12:26 → MS3 13:08
PROVIDERS: Emergency Provider Emergency Medicine; PCP Nurse Practitioner Family; Visit Provider Internal Medicine
DX: F10.139 Alcohol abuse with withdrawal, unspecified (principal); Z68.41 Body mass index [BMI] 40.0-44.9, adult; D75.1 Secondary polycythemia; E66.01 Morbid (severe) obesity due to excess calories; E78.5 Hyperlipidemia, unspecified; I10 Essential (primary) hypertension; K21.9 Gastro-esophageal reflux disease without esophagitis; F41.9 Anxiety disorder, unspecified; Z87.891 Personal history of nicotine dependence; F32.A Depression, unspecified; Z79.899 Other long term (current) drug therapy; Z23 Encounter for immunization
CPT/HCPCS: 36415; 80053; 80307; 82077; 85025; 99284; 90686; A4216